=== PATIENT | female | born 1950 | race Caucasian/White ===

== ENCOUNTER 2017-11-21 14:38 | Emergency (ER) | payer MEDICARE, SELFPAY ==
[2017-11-21 14:54] VITALS: BP 169/88; PULSE 73; RESP 18; TEMP 36.7; O2SAT 99; BMI 44.1
[2017-11-21 15:22] VITALS: BP 147/63; PULSE 71; O2SAT 97
--- NOTE | 2017-11-21 15:46 | DI.CT.S_ITS ---
PROCEDURE: CT HEAD/BRAIN WO CON INDICATIONS: 67 year-old woman with dizziness and twitching behind right eye. TECHNIQUE: Noncontrast 4.5 mm thick angled axial sections acquired from the foramen magnum to the vertex, with coronal and sagittal reformats. For radiation dose reduction, the following was used: automated exposure control, adjustment of mA and/or kV according to patient size. COMPARISON: None. FINDINGS: Image quality: Excellent. CSF spaces: Basal cisterns are patent. No extra-axial fluid collections. Ventricles are normal in size and shape. Brain: Small hypodensities in the anterior limb of the left internal capsule and left basal ganglia may represent old lacunar infarcts or dilated perivascular space. No midline shift. No intracranial masses or hemorrhage. Mar-white matter interface is normal. Skull and face: Calvarium and visualized facial bones are intact, without suspicious lesions. Sinuses: Visualized sinuses and mastoids are clear. IMPRESSION: 1. No acute intracranial abnormalities. Dictated by: Kellee Dobbs M.D. on 11/21/2017 at 16:04 Approved by: Kellee Dobbs M.D. on 11/21/2017 at 16:09
--- NOTE | 2017-11-21 15:50 | PC.NURSE ---
Pt was sitting at home at about 1230 and all of the sudden felt a golf ball sized area of vibration behind the right eye. [place] dizzy and put her head between her knees. Was sent by doctor to come in.
[2017-11-21 16:03] VITALS: BP 147/71; PULSE 72; RESP 25; O2SAT 94
[2017-11-21 16:30] VITALS: BP 147/74; PULSE 67; RESP 22; O2SAT 93
--- NOTE | 2017-11-21 18:51 | ED.NEUROSD ---
HPI - Neuro Symptoms/Deficit General Chief Complaint: Neuro Symptoms/Deficit Stated Complaint: DIZZINESS,NAUSEA,BRAIN FELT LIKE IT VIBRATED Time Seen by Provider: 11/21/17 15:22 Source: patient Mode of arrival: ambulatory Limitations: no limitations History of Present Illness HPI Narrative: 67F presents to ED after a strange sensation behind her R eye described as 10 seconds of shaking, which resolved spontaneously, and was not assocaited with any neurological findings as per patient. No vision, hearing, balance, or numbness changes. No weakness. No pain. Patient wanted reassurance that what happened was not serious. No recent illness, fever, chills, SOB. Did report mild intermittent nausea that she often gets with taking her prescribed medicines. On Anticoagulants: No Related Data Home Medications Medication Instructions Recorded Confirmed albuterol sulfate [Ventolin HFA] 1 puff INH Q4HP PRN 11/21/17 11/21/17 Previous Rx's Medication Instructions Recorded [place] u IJ #100 01/11/17 alendronate 70 mg PO QWEEK #12 tab 05/22/17 bupropion HCl [Wellbutrin XL] 150 mg PO QDAY #30 tab 09/11/17 insulin glargine [Lantus Solostar 12 unit SQ HS #5 ea 09/14/17 U-100 Insulin] montelukast 10 mg PO QDAY #30 tab 09/21/17 fluticasone-vilanterol [Breo 1 puff INH QDAY #1 inh 10/05/17 Ellipta] atorvastatin [Lipitor] 20 mg PO HS #30 tab 10/16/17 hydrochlorothiazide 12.5 mg PO QDAY #30 tab 10/16/17 levothyroxine 50 mcg PO QAM #30 mg 10/16/17 losartan 50 mg PO BID #60 tab 10/16/17 metformin 1,000 mg tablet 1,000 mg PO BIDCC #60 tab 11/14/17 Allergies Allergy/AdvReac Type Severity Reaction Status Date / Time codeine [CODEINE] Allergy Unknown Verified 11/21/17 15:02 latex [LATEX] Allergy Unknown Verified 11/21/17 15:02 Review of Systems Constitutional Denies chills, Denies fever(s), Denies lethargy and Denies weakness Eyes Denies change in vision, Denies eye discharge, Denies irritation and Denies loss of vision Cardiovascular Denies chest pain, Denies irregular heart rhythm, Denies lightheadedness, Denies palpitations, Denies dyspnea, Denies dyspnea on exertion and Denies orthopnea Respiratory Denies cough, Denies dyspnea, Denies dyspnea on exertion and Denies wheezing Neurologic Denies loss of vision and Denies weakness Endocrine Denies palpitations Allergic/Immunologic Denies wheezing PFSH Surgical History Status post appendectomy Status post cholecystectomy Status post hysterectomy Family History Father Heart disease Mother Heart disease Social History Smoking Status: Never smoker Exam Initial Vital Signs Initial Vital Signs: Vital Signs Temperature 98.1 F 11/21/17 14:54 Pulse Rate 73 11/21/17 14:54 Respiratory Rate 18 11/21/17 14:54 Blood Pressure 169/88 H 11/21/17 14:54 Pulse Oximetry 99 11/21/17 14:54 Const General: cooperative and well developed Nutritional Appearance: well nourished Orientation: alert, awake, oriented x3 and not confused HENNM Head: normocephalic and atraumatic Ears: external ears normal and TM's normal bilaterally Nose: external nose normal and No nasal discharge Face and sinus: sinuses nontender, face symmetric, no sinus tenderness and No dry mucous membranes Mouth: oral mucosae normal and moist mucous membranes Teeth and gingiva: dentition normal Throat: tonsils normal and uvula midline Neck Neck: normal visual inspection, trachea midline, No lymphadenopathy, No midline deformity and No JVD Lymphatic: No lymphedema Resp Effort & Inspection: normal respiratory effort, able to speak in complete sentences, no respiratory distress and no use of accessory muscles Auscultation: clear to auscultation bilaterally, no rales, no rhonchi and no wheezes GI Inspection: non-distended Palpation: soft, no hepatosplenomegaly, No guarding, No pulsatile mass and No tender Auscultation: normal bowel sounds Neuro General: alert, oriented x3, gait normal and no focal motor deficits Speech: speech normal Extrem General: full ROM, no clubbing, cyanosis or edema, no pedal edema and no calf tenderness Course Orders Ordered: ED Orders 11/21/17 15:46 CT head/brain wo con Stat Vital Signs - 8 hr 11/21/17 14:54 11/21/17 15:22 11/21/17 16:03 Temperature 98.1 F Pulse Rate 73 71 72 Respiratory Rate 18 25 H Blood Pressure 169/88 H Blood Pressure [Right Arm] 147/63 H 147/71 H Pulse Oximetry 99 97 94 11/21/17 16:30 Temperature Pulse Rate 67 Respiratory Rate 22 Blood Pressure Blood Pressure [Right Arm] 147/74 H Pulse Oximetry 93 MDM - Neuro Symptoms/Deficit Lab Data N egative Urine POC Imaging Data CT scan - head: Radiologist's impression: Patient: Hiral Wood MR#: [id number] : 1950 Acct:[id number] Age/Sex: 67 / F Date of Service: 11/21/17 Loc: ED Accession Number: [id number] Procedure: CT head/brain wo con Ordering Provider: Bharti Garcia M.D. PROCEDURE: CT HEAD/BRAIN WO CON INDICATIONS: 67 year-old woman with dizziness and twitching behind right eye. TECHNIQUE: Noncontrast 4.5 mm thick angled axial sections acquired from the foramen magnum to the vertex, with coronal and sagittal reformats. For radiation dose reduction, the following was used: automated exposure control, adjustment of mA and/or kV according to patient size. COMPARISON: None. FINDINGS: Image quality: Excellent. CSF spaces: Basal cisterns are patent. No extra-axial fluid collections. Ventricles are normal in size and shape. Brain: Small hypodensities in the anterior limb of the left internal capsule and left basal ganglia may represent old lacunar infarcts or dilated perivascular space. No midline shift. No intracranial masses or hemorrhage. Mar-white matter interface is normal. Skull and face: Calvarium and visualized facial bones are intact, without suspicious lesions. Sinuses: Visualized sinuses and mastoids are clear. IMPRESSION: 1. No acute intracranial abnormalities. Dictated by: Kellee Dobbs M.D. on 11/21/2017 at 16:04 Approved by: Kellee Dobbs M.D. on 11/21/2017 at 16:09 ECG Data Interpretation: NSR HR [address]/TW abnormalities Normal intervals Normal axis MDM Narrative Medical decision making narrative: No neurological symptoms in her history to pursue. No current symptoms at time of visit to pursue. CT head negative for any structural etiology of symptoms. Patient reassured. Will follow up with her PCP Discharge Plan Departure Patient Disposition: Home, Self-Care Clinical Impression: Feared condition not demonstrated, Headache above the eye region Discharge Date/Time: 11/21/17 16:54 Interventions: ED Discharge Assessment Last Done: 11/21/17 16:54 Instructions: DI for Headache Activity Restrictions/Additional Instructions: Maintain adequate hydration. Please follow up with your primary care provider. Prescriptions: No Action [place] IJ Qty: 100 RF: 1 alendronate 70 MG tablet 70 mg PO QWEEK Qty: 12 RF: 4 bupropion HCl [Wellbutrin XL] 150 MG tablet extended release 24 hr 150 mg PO QDAY Qty: 30 RF: 6 insulin glargine [Lantus Solostar U-100 Insulin] 100 UNIT/1 ML insulin pen 12 unit SQ HS Qty: 5 RF: 1 montelukast 10 MG tablet 10 mg PO QDAY Qty: 30 RF: 2 fluticasone-vilanterol [Breo Ellipta] 200 MCG/25 MCG blister with device 1 puff INH QDAY Qty: 1 RF: 2 losartan 50 MG tablet 50 mg PO BID Qty: 60 RF: 3 atorvastatin [Lipitor] 20 MG tablet 20 mg PO HS Qty: 30 RF: 2 levothyroxine 50 MCG tablet 50 mcg PO QAM Qty: 30 RF: 2 hydrochlorothiazide 12.5 MG tablet 12.5 mg PO QDAY Qty: 30 RF: 2 metformin 1,000 mg tablet 1,000 mg PO BIDCC Qty: 60 RF: 1 albuterol sulfate [Ventolin HFA] 90 MCG/PUFF HFA aerosol inhaler 1 puff INH Q4HP PRN (Reason: Allergy Symptoms) RF: 0
== END 2017-11-21 16:54 | disposition home or self-care (01) ==
PROVIDERS: Emergency Provider Student in an Organized Health Care Education/Training Program; Family Provider Family Medicine; PCP Family Medicine
DX: R51 Headache (principal)
CPT/HCPCS: 70450; 81003; 93005; 93041; 99283; 99284; 99291

== ENCOUNTER → 2018-02-15 09:53 | Outpatient (CLI) | payer MEDICARE, SELFPAY ==
[2018-02-15 10:57] LABS: BUN Creatinine Ratio 27.5 (6-22); Blood Urea Nitrogen 22 mg/dL (7-17); Calcium 9.7 mg/dL (8.4-10.2); Carbon Dioxide 27 mmol/L (22-32); Chloride 103 mmol/L (98-107); Cholesterol 183 mg/dL (140-199); Estimated Glomerular Filt Rate > 60.0 mL/min (>60); Glucose 127 mg/dL (80-110); HDL Cholesterol 50 mg/dL (40-60); HEMOLYSIS < 15 (0-50); LDL Cholesterol Calculated 79 mg/dL (<100); Potassium 4.5 mmol/L (3.4-5.1); Sodium 142 mmol/L (137-145); Triglycerides 269 mg/dL (35-150)
[2018-02-15 12:30] LABS: TSH w/ Reflex to FT4 4.12 uIU/mL (0.47-4.68)
== END ==
PROVIDERS: Family Provider Family Medicine; PCP Family Medicine; Visit Provider Family Medicine
DX: E03.9 Hypothyroidism, unspecified (principal); E11.69 Type 2 diabetes mellitus with other specified complication; E78.5 Hyperlipidemia, unspecified; I10 Essential (primary) hypertension; E11.9 Type 2 diabetes mellitus without complications
CPT/HCPCS: 36415; 80048; 80061; 84443

== ENCOUNTER → 2018-11-13 09:38 | Outpatient (CLI) | payer MEDICARE, SELFPAY ==
[2018-11-13 10:29] LABS: Hemoglobin A1C% w Est Avg Glu 5.6 % (4.0-6.0)
[2018-11-13 10:38] LABS: BUN Creatinine Ratio 21.3 (6-22); Blood Urea Nitrogen 17 mg/dL (7-17); Carbon Dioxide 25 mmol/L (22-32); Chloride 104 mmol/L (98-107); Estimated Glomerular Filt Rate > 60.0 mL/min (>60); Glucose 115 mg/dL (80-110); HEMOLYSIS < 15 (0-50); Potassium 4.4 mmol/L (3.4-5.1); Sodium 140 mmol/L (137-145)
[2018-11-13 11:20] LABS: TSH w/ Reflex to FT4 3.63 uIU/mL (0.47-4.68)
[2018-11-19 14:37] LABS: Microalbumin Urine Random 8.2 mg/dL (0-1.6)
[2018-11-19 14:51] LABS: Creatinine Urine Random 374.6 mg/dL; Microalbumi Creatinin Ratio Ur 21.8 ug/mg CR (<30)
== END ==
PROVIDERS: PCP Family Medicine; Visit Provider Family Medicine
DX: E03.9 Hypothyroidism, unspecified (principal); E11.9 Type 2 diabetes mellitus without complications; I10 Essential (primary) hypertension; Z13.6 Encounter for screening for cardiovascular disorders
CPT/HCPCS: 36415; 80048; 82043; 82570; 83036; 84443

== ENCOUNTER 2019-07-02 18:27 | Emergency (ER) | payer MEDICARE, SELFPAY ==
[2019-07-02 18:45] VITALS: BP 140/80; PULSE 62; RESP 16; TEMP 36.9; O2SAT 100; BMI 41.1
--- NOTE | 2019-07-02 18:56 | DI.RAD.S_ITS ---
PROCEDURE: XR FOREARM RT 2V INDICATIONS: Ground level fall and pain to forearm TECHNIQUE: 2 views of the forearm were acquired. COMPARISON: None. FINDINGS: Bones: No fractures or dislocations. Small ossicle adjacent to the ulnar styloid likely represents sequelae of prior trauma. First CMC joint DJD. No suspicious bony lesions. Soft tissues: Soft tissue swelling over the distal one third of the forearm. No radiopaque foreign body. No suspicious soft tissue calcifications or masses. IMPRESSION: No acute osseous abnormality. Dictated by: William Das M.D. on 07/02/2019 at 19:15 Approved by: William Das M.D. on 07/02/2019 at 19:16
[2019-07-02 19:17] VITALS: PULSE 62
--- NOTE | 2019-07-02 19:20 | ED_ITS ---
HPI - General Adult General Chief complaint: Extremity Injury, Upper Stated complaint: GLF,total hip 6 wks ago,swelling left forearm. Time Seen by Provider: 07/02/19 19:04 Source: patient Mode of arrival: Ambulatory Limitations: no limitations History of Present Illness HPI narrative: 68-year-old female 6 weeks from a left total hip arthroplasty here for evaluation of injuries that she sustained after tripping over an area rug in her house. She stated that as she was falling she hit her left forearm on a piece of furniture. She then landed on her right side. Did not hit her head. Since the fall has been ambulatory. Does have some right hip pain. No left hip pain. She has a bruise to her left forearm. She is more concerned about the injury to her left forearm. No pain to the left wrist or left elbow. Related Data Home Medications Medication Instructions Recorded Confirmed albuterol sulfate [Ventolin HFA] 1 puff INH Q4HP PRN 11/21/17 03/07/19 Respironics DreamStation Auto CPAP #1 ea 08/02/18 03/07/19 meloxicam 15 mg tablet 15 mg PO DAILY 03/07/19 03/07/19 montelukast 10 mg tablet 10 mg PO QDAY PRN tab 03/07/19 03/07/19 Previous Rx's Medication Instructions Recorded losartan 50 mg tablet 50 mg PO BID #180 tab 03/11/18 atorvastatin 20 mg tablet 20 mg PO HS #90 tab 11/19/18 bupropion HCl 150 mg 24 hr tablet, 150 mg PO QDAY #90 tab 11/19/18 extended release duloxetine 20 mg capsule,delayed 20 mg PO DAILY #90 cap 11/19/18 release gabapentin 100 mg capsule 100 mg PO BID #180 cap 11/19/18 levothyroxine 50 mcg tablet 50 mcg PO QAM #90 tab 11/19/18 metformin 1,000 mg tablet 1,000 mg PO DAILY #90 tab 11/19/[address] #1 ea 01/24/19 albuterol sulfate 0.63 mg/3 mL 0.63 mg INHALATION Q4-6H PRN #75 ml 03/07/19 solution for nebulization doxycycline hyclate 100 mg capsule 100 mg PO BID #14 cap 03/07/19 prednisone 20 mg tablet 20 mg PO DAILY #7 tab 03/07/19 prednisone 20 mg tablet 20 mg PO DAILY #10 tab 03/12/19 Allergies Allergy/AdvReac Type Severity Reaction Status Date / Time codeine [CODEINE] Allergy Unknown Verified 03/07/19 09:34 latex [LATEX] Allergy Unknown Verified 03/07/19 09:34 Review of Systems Constitutional Constitutional: Denies frequent falls and Denies headache(s) ENT Ears, Nose, Mouth, and Throat: Denies vertigo, Denies dizziness, Denies headache(s) and Denies disequilibrium Cardiovascular Cardiovascular: Denies chest pain and Denies dyspnea Respiratory Respiratory: Denies dyspnea Gastrointestinal Gastrointestinal: Denies abdominal pain, Denies nausea and Denies vomiting Musculoskeletal Musculoskeletal: Denies myalgias, Denies arthralgias and Denies tingling Comments: Left forearm pain Integumentary/Breasts Comments: Bruise to left forearm Neurologic Neurologic: Denies burning sensations, Denies confusion, Denies vertigo, Denies dizziness, Denies frequent falls, Denies headache(s), Denies tingling, Denies paresthesias and Denies disequilibrium Psychiatric Psychiatric: Denies confusion Hematologic/Lymphatic Hematologic/Lymphatic: Denies easy bleeding and Denies easy bruising Patient History Medical History Asthma (Chronic ~2014) Chicken pox (Resolved) Depression (Chronic ~1997) Diabetes mellitus (Chronic ~2015) Hemorrhoid (Chronic ~1979) Hypothyroidism (Chronic ~2015) Measles (Resolved) Mumps (Resolved) Sleep apnea (Chronic ~1999) Social History marital status: Smoking Status: Never smoker alcohol intake: never substance use type: does not use Smoking Status: Never smoker alcohol intake frequency: holidays/special occasions only Substance Use Type: does not use Exam Initial Vital Signs Initial Vital Signs: Vital Signs Temperature 98.5 F 07/02/19 18:45 Pulse Rate 62 07/02/19 18:45 Respiratory Rate 16 07/02/19 18:45 Blood Pressure 140/80 07/02/19 18:45 Pulse Oximetry 100 07/02/19 18:45 Const General: cooperative, comfortable and well developed Orientation: alert, awake and oriented x3 HENMT Head: normal to inspection and normocephalic Resp Effort & Inspection: normal respiratory effort Cardio Rate: regular rate Skin Other: Bruise to left forearm without any breaks in the skin, ulnar aspect, mid forearm Neuro General: alert and awake Cognition: normal cognition Speech: speech normal Extrem General: normal to inspection and capillary refill normal Other: Bilateral hips unremarkable. Patient is ambulatory. Patient able to flex and extend the left wrist and left elbow and pronate and supinate left forearm Psych Appearance: grossly normal and well kempt Course Orders Ordered: ED Orders 07/02/19 18:56 XR forearm LT 2V Stat Vital Signs Vital signs: Vital Signs - 8 hr 07/02/19 18:45 07/02/19 19:17 Temperature 98.5 F Pulse Rate 62 Pulse Rate [Left Radial] 62 Respiratory Rate 16 Blood Pressure 140/80 Pulse Oximetry 100 Medical Decision Making Imaging Data Extremity x-ray #1: Radiologist's Impression: [address] [id number] XRay Report Signed Patient: Hiral Wood JMR#: [id number] : 2Acct:[id number] Age/Sex: 68 / FDate of Service: 07/02/19 Loc: ED Accession Number: [id number] Procedure: XR forearm LT 2V Ordering Provider: Tomas Escobar D.O. PROCEDURE: XR FOREARM RT 2V INDICATIONS: Ground level fall and pain to forearm TECHNIQUE: 2 views of the forearm were acquired. COMPARISON: None. FINDINGS: Bones: No fractures or dislocations. Small ossicle adjacent to the ulnar styloid likely represents sequelae of prior trauma. First CMC joint DJD. No suspicious bony lesions. Soft tissues: Soft tissue swelling over the distal one third of the forearm. No radiopaque foreign body. No suspicious soft tissue calcifications or masses. IMPRESSION: No acute osseous abnormality. Dictated by: William Das M.D. on 07/02/2019 at 19:15 Approved by: Willaim Dsa M.D. on 07/02/2019 at 19:16 MDM Narrative Medical decision making narrative: Patient has been able to ambulate. Low suspicion for hip fractures or dislocations. Patient was stating that she did not want an x-ray of her hips. Her left forearm has a bruise on the ulnar aspect. No breaks in the skin. X-rays show no fractures. This does appear to be a mechanical fall. No other injuries reported from the patient from the event are found on the exam. Patient was given return precautions and follow-up instructions. She expressed understanding and agreement plan. Discharge Plan Departure Patient Disposition: Home Clinical Impression: Contusion of arm, left Qualifiers: Encounter type: initial encounter Qualified Code(s): S40.022A - Contusion of left upper arm, initial encounter Fall Qualifiers: Encounter type: initial encounter Qualified Code(s): W19.XXXA - Unspecified fall, initial encounter Discharge Date/Time: 07/02/19 19:51 Instructions: DI for Hematoma (Bruise) Activity Restrictions/Additional Instructions: You can put ice over the bruise. Expect to be more sore tomorrow. If there is a specific pain and joint tomorrow please return to the emergency department for further evaluation like we discussed. Contact your primary provider for follow- up. Prescriptions: No Action metformin 1,000 mg tablet 1,000 mg PO DAILY Qty: 90 RF: 3 atorvastatin [Lipitor] 20 mg tablet 20 mg PO HS Qty: 90 RF: 3 bupropion HCl [Wellbutrin XL] 150 mg tablet extended release 24 hr 150 mg PO QDAY Qty: 90 RF: 3 levothyroxine 50 mcg tablet 50 mcg PO QAM Qty: 90 RF: 3 duloxetine 20 mg capsule,delayed release(DR/EC) 20 mg PO DAILY Qty: 90 RF: 3 gabapentin 100 mg capsule 100 mg PO BID Qty: 180 RF: 3 losartan 50 mg tablet 50 mg PO BID Qty: 180 RF: 3 (DME) Disabled parking permit Qty: 1 RF: 0 prednisone 20 mg tablet 20 mg PO DAILY Qty: 10 RF: 0 montelukast 10 mg tablet 10 mg PO QDAY PRNRF: 0 meloxicam 15 mg tablet 15 mg PO DAILY RF: 0 doxycycline hyclate 100 mg capsule 100 mg PO BID Qty: 14 RF: 0 albuterol sulfate 0.63 mg/3 mL solution for nebulization 0.63 mg INHALATION Q4-6H PRN (Reason: shortness of breath or wheezing) Qty: 75 RF: 0 prednisone 20 mg tablet 20 mg PO DAILY Qty: 7 RF: 0 albuterol sulfate [Ventolin HFA] 90 MCG/PUFF HFA aerosol inhaler 1 puff INH Q4HP PRN (Reason: Allergy Symptoms) RF: 0 (DME) Respironics DreamStation Auto CPAP Qty: 1 RF: 0 Referrals: Viviane Carpio DO [Primary Care Provider] -
== END 2019-07-02 19:51 | disposition home or self-care (01) ==
PROVIDERS: Emergency Provider Emergency Medicine; PCP Family Medicine
DX: S40.022A Contusion of left upper arm, initial encounter (principal); W01.190A Fall on same level from slipping, tripping and stumbling with subsequent striking against furniture, initial encounter
CPT/HCPCS: 73090; 99281; 99283

== ENCOUNTER → 2020-07-29 09:08 | Outpatient (CLI) | payer MEDICARE, SELFPAY ==
[2020-07-29 09:45] LABS: Add Manual Diff / Slide Review NO; Basophils Absolute Auto 0 /uL (0-100); Basophils Percent Auto 0.6 % (0-2); Eosinophils Absolute Auto 400 /uL (0-450); Eosinophils Percent Auto 6.6 % (2-4); Hematocrit 37.1 % (36-46); Lymphocytes Absolute Auto 1500 /uL (1100-4500); Lymphocytes Percent Auto 26.6 % (25-40); Mean Corpuscular HGB Conc 32.4 % (30-36); Mean Corpuscular Hemoglobin 28.8 PG (26-34); Monocytes Absolute Auto 400 /uL (0-900); Monocytes Percent Auto 6.5 % (3-14); Neutrophils Absolute Auto 3400 /uL (1500-7000); Neutrophils Percent Auto 59.7 % (50-75); Platelet Count 275 X10^3/uL (150-400); Red Blood Cell Count 4.17 X10^6/uL (4.0-5.2); White Blood Cell Count 5.7 X10^3/uL (4.5-11.0)
[2020-07-29 09:54] LABS: Alanine Aminotransferase 14 IU/L (<35); Albumin 4.5 g/dL (3.5-5.0); Albumin Globulin Ratio 1.3 (1.0-2.8); Alkaline Phosphatase 80 U/L (38-126); Aspartate Aminotransferase 25 IU/L (14-36); BUN Creatinine Ratio 18.3 (6-22); Bilirubin Total 0.4 mg/dL (0.2-1.3); Blood Urea Nitrogen 13 mg/dL (7-17); Calcium 9.6 mg/dL (8.4-10.2); Carbon Dioxide 27 mmol/L (22-32); Chloride 108 mmol/L (98-107); Cholesterol 278 mg/dL (140-199); Estimated Glomerular Filt Rate > 60.0 mL/min (>60); Globulin 3.4 g/dL (1.7-4.1); Glucose 123 mg/dL (80-110); HDL Cholesterol 58 mg/dL (40-60); HEMOLYSIS 17 (0-50); LDL Cholesterol Calculated 168 mg/dL (<100); Potassium 4.3 mmol/L (3.4-5.1); Sodium 141 mmol/L (137-145); Total Protein 7.9 g/dL (6.3-8.2); Triglycerides 258 mg/dL (35-150)
[2020-07-29 10:09] LABS: Hemoglobin A1C% w Est Avg Glu 5.1 % (4.0-6.0)
[2020-07-29 10:33] LABS: Thyroid Stimulating Hormone 4.07 uIU/mL (0.47-4.68)
== END ==
PROVIDERS: PCP Family Medicine; Referring Provider Family Medicine; Visit Provider Family Medicine
DX: E03.9 Hypothyroidism, unspecified (principal); E11.9 Type 2 diabetes mellitus without complications; E11.69 Type 2 diabetes mellitus with other specified complication; E66.01 Morbid (severe) obesity due to excess calories; E78.5 Hyperlipidemia, unspecified; I10 Essential (primary) hypertension; Z68.41 Body mass index [BMI] 40.0-44.9, adult
CPT/HCPCS: 36415; 80053; 80061; 83036; 84443; 85025

== ENCOUNTER → 2020-08-04 11:01 | Outpatient (CLI) | payer MEDICARE, SELFPAY ==
--- NOTE | 2020-08-04 11:06 | DI.MG.S_ITS ---
BILATERAL DIGITAL SCREENING MAMMOGRAM 3D/2D WITH CAD: 08/04/2020 CLINICAL: Baseline exam. Routine screening. No prior exams were available for comparison. There are scattered fibroglandular elements in both breasts. Current study was also evaluated with a Computer Aided Detection (CAD) system. No significant masses, calcifications, or other findings are seen in either breast. IMPRESSION: NEGATIVE There is no mammographic evidence of malignancy. A 1 year screening mammogram is recommended. This exam was interpreted at Station ID: [id number]. NOTE: For mammograms, a report in lay terms will be sent to the patient. Approximately 15% of breast malignancies will not be visualized mammographically. In the management of a palpable breast mass, a negative mammogram must not discourage biopsy of a clinically suspicious lesion. Electronically Signed By: Vinicius pena/jimena:08/04/2020 11:36:42 letter sent: Normal Exam ACR BI-RADS Category 1: Negative [id number]
== END ==
PROVIDERS: PCP Family Medicine; Referring Provider Family Medicine; Visit Provider Family Medicine
DX: Z12.31 Encounter for screening mammogram for malignant neoplasm of breast (principal)
CPT/HCPCS: 77063; 77067

== ENCOUNTER → 2020-08-10 10:11 | Outpatient (CLI) | payer MEDICARE, SELFPAY | PROVIDERS: PCP Family Medicine; Referring Provider Family Medicine; Visit Provider Family Medicine | DX: Z78.0 Asymptomatic menopausal state (principal); R29.890 Loss of height; Z90.722 Acquired absence of ovaries, bilateral | CPT/HCPCS: 77080 ==

== ENCOUNTER 2020-11-26 09:04 | Emergency (ER) | payer MEDICARE, SELFPAY ==
[2020-11-26] VITALS (24 sets, daily range): BP systolic 82–110; BP diastolic 46–94; PULSE 69–110; RESP 16–28; TEMP 37.7; O2SAT 85–97; BMI 37.8
--- NOTE | 2020-11-26 09:13 | ED_ITS ---
HPI - General Adult General Chief complaint: Fever Stated complaint: Chills for 2 hours Time Seen by Provider: 11/26/20 09:13 Source: patient, family (son) and EMS Mode of arrival: EMS Limitations: no limitations History of Present Illness HPI narrative: This is a 70-year-old female who is [facility] for chills for the last 2-3 hours. Patient states she has noticed some dysuria with the end of urination over the past 2 or 3 days. Patient denies any headache. She denies any chest pain or pressure. She has had nausea but no active emesis at this time. She denies any shortness of breath she denies abdominal pain. No new back or flank pain. Patient denies any black or bloody stools. She was constipated but had a very large bowel movement yesterday. She has not had any continued diarrhea since then. Patient had a difficult hospitalization head [facility] recently from her description sounds like she likely had an obstructive kidney stone with urosepsis. Patient has a left-sided nephrostomy present. She does still continue to urinate on her own. She states she also had 2 ureteral stents placed which are still present. 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 Patient also states that she had a heart attack while she was there and had 2 cardiac stents placed. Patient is unsure of all her medications but states she is receiving heparin shots daily. She does have history of diabetes, hypertension 1 with coronary artery disease, LESLIE and hypothyroidism. Patient states she has a history of appendectomy, cholecystectomy and hysterectomy as well as tonsillectomy. She states she is allergic to hydrocodone and latex. No tobacco, alcohol or illicit noted. Patient's son is at bedside. Related Data Home Medications Medication Instructions Recorded Confirmed Respironics [employer] Auto CPAP #1 ea 08/02/18 10/11/20 Previous Rx's Medication Instructions Recorded Disabled parking permit #1 ea 01/24/19 atorvastatin 10 mg tablet 10 mg PO BEDTIME #90 tab 08/10/20 losartan 50 mg tablet 50 mg PO DAILY #90 tab 08/10/20 meloxicam 7.5 mg tablet 7.5 mg PO DAILY #90 tab 08/10/20 bupropion HCl 150 mg 24 hr tablet, 150 mg PO QAM #90 tab 10/13/20 extended release Allergies Allergy/AdvReac Type Severity Reaction Status Date / Time codeine [CODEINE] Allergy Unknown Verified 10/11/20 16:40 latex [LATEX] Allergy Unknown Verified 10/11/20 16:40 Review of Systems Review of Systems ROS Unobtainable: All systems reviewed & are unremarkable except as noted in HPI and below Patient History Medical History Asthma (~2014) Chicken pox Depression (~1997) Diabetes mellitus (~2015) Hemorrhoid (~1979) Hypothyroidism (~2015) Measles Mumps Obesity (BMI 30-39.9) Sleep apnea (~1999) Surgical History Anesthesia History of sinus surgery (~2004) Status post appendectomy (~1959) Status post cholecystectomy (~1988) Status post hysterectomy (~1998) Family History Father Heart disease Mother Heart disease Social History marital status: Smoking Status: Never smoker alcohol intake: never substance use type: does not use Smoking Status: Never smoker alcohol intake frequency: holidays/special occasions only Substance Use Type: does not use Exam Narrative Exam Narrative: GEN: well nourished, female appears stated age, alert and oriented x 3, patient appears to be in mild distress. Patient does appear to have occasional shaking chills. HEENT: Atraumatic, pupils are equal round reactive to light, extraocular movements are intact, nares are clear. Full range of motion of neck with no pain. HEART: Regular rate and rhythm without murmur, clicks, rubs. Pulses are equal in upper and lower extremities LUNGS:Lungs clear to auscultation, no wheezes, rales, crackles, chest moves symmetrically ABD:bowel sounds normal, soft, non-tender, no guarding, rebound, rigidity, no masses noted, no hepatosplenomegaly :No CVA tenderness, patient has left nephrostomy tube in place draining cloudy urine. MSCL: Non-tender, no muscle atrophy, patient has black discoloration of her toes particularly on the right foot in particular toes 1 through 3, but has some mild changes on her left as well. Patient also has some mild discoloration of the distal fingers but no black discoloration. Patient has 2+ pulses bilateral lower extremities dorsalis pedis. She also has lines drawn on her feet with no extension of erythema or skin changes beyond those lines. NEURO:CN 2-12 intact, sensation normal. GCS of 15 Initial Vital Signs Initial Vital Signs: Vital Signs Temperature 99.8 F H 11/26/20 09:14 Pulse Rate 97 H 11/26/20 09:14 Respiratory Rate 20 11/26/20 09:14 Blood Pressure 110/83 11/26/20 09:14 Pulse Oximetry 96 11/26/20 09:14 Scores GCS Mirna coma scale eye opening: Spontaneous Mirna coma scale verbal response: Orientated [place] coma scale motor response: Obey commands [place] coma scale total score: 15 Course Orders Ordered: ED Orders 11/26/20 10:00 Urinalysis and Microscopic Stat Urine Culture Stat 11/26/20 10:35 Complete Blood Count AUTO DIFF Stat Comprehensive Metabolic Panel Stat Lactate (Lactic Acid) Stat NT-proBNP (BNP-Adult 18+) Stat Partial Thromboplastin Time Stat Procalcitonin Stat Prothrombin Time INR Stat Troponin & CK Cardiac Panel Stat 11/26/20 10:43 Blood Culture Stat 11/26/20 11:20 CT abdomen pelvis w con Stat 11/26/20 13:25 COVID19 - ADMIT (FINAL [employer]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) Stat Lactated Ringer's (Lactated Ringers) 1,000 mls @ 150 mls/hr IV CONT JENN Last Admin: 11/26/20 17:40 Dose: 150 mls/hr Documented by: DIMAS Discontinued Medications Sodium Chloride (Normal Saline 0.9%) 1,000 mls @ 1,000 mls/hr IV BOLUS ONE Stop: 11/26/20 10:19 Last Infusion: 11/26/20 13:08 Dose: 0 mls/hr Documented by: Admin: 11/26/20 09:29 Dose: 1,000 mls/hr Documented by: DIMAS Piperacillin Sod/Tazobactam (Sod 4.5 gm/ Sodium Chloride) 100 mls @ 200 mls/hr IV NOW ONE Stop: 11/26/20 10:30 Last Infusion: 11/26/20 11:25 Dose: 0 mls/hr Documented by: Admin: 11/26/20 10:49 Dose: 200 mls/hr Documented by: DIMAS Levofloxacin (Levaquin) 750 mg in 150 mls @ 100 mls/hr IV NOW ONE Stop: 11/26/20 11:58 Last Infusion: 11/26/20 13:44 Dose: 0 mls/hr Documented by: Infusion: 11/26/20 13:08 Dose: 100 mls/hr Documented by: Infusion: 11/26/20 11:26 Dose: 0 mls/hr Documented by: Admin: 11/26/20 10:51 Dose: 100 mls/hr Documented by: DIMAS Lactated Ringer's (Lactated Ringers) 2,993.7 mls @ 997.9 mls/hr 30 ml/kg infuse over 3 hr (2993.7 ml) IV NOW ONE Stop: 11/26/20 13:29 Last Infusion: 11/26/20 17:04 Dose: 0 mls/hr Documented by: Infusion: 11/26/20 16:03 Dose: 999 mls/hr Documented by: Infusion: 11/26/20 15:12 Dose: 0 mls/hr Documented by: Admin: 11/26/20 14:05 Dose: 997.9 mls/hr Documented by: MELO Vancomycin HCl/Dextrose (Vancomycin) 1,500 mg in 300 mls @ 200 mls/hr IV NOW ONE Stop: 11/26/20 15:09 Last Infusion: 11/26/20 16:03 Dose: 0 mls/hr Documented by: Admin: 11/26/20 13:49 Dose: 200 mls/hr Documented by: MELO Ondansetron HCl (Ondansetron 4 Mg/2 Ml Inj) 4 mg IV NOW ONE Stop: 11/26/20 10:46 Last Admin: 11/26/20 10:51 Dose: 4 mg Documented by: DIMAS Reevaluation(s) Reevaluation #1: This is a 70-year-old female who comes in with chills. On repeat evaluation she feels like she is starting to warm up. She has not developed fever. She has not had any hypotension. She has had some mild tachycardia. Discussed with patient I do not have CT available but ultrasound of Um does not show any major changes. We did general abdominal ultrasound. Chest x-ray is clear. Labs are currently pending. Urine does have leuks as well as many wbc's. No nitrates but with patient's symptoms, her recent urosepsis IV antibiotics were initiated while awaiting labs. I am still awaiting hospital records from [facility]. Patient states she does not have any follow-up with Urology or Nephrology set up at this time. Her primary care is Dr. Carpio. Time: 10:43 Reevaluation #2: Repeat evaluation. Reviewed patient's labs and imaging once again. She is feeling improved at this time. She states her chills have resol gail. She does not any shortness of breath, chest pain, nausea vomiting or other other changes at this time. Patient aware of current plan. I did note that her blood pressures have been running low. We had not initiated pressors although it was discussed with the hospitalist at [facility] and they elected to have us wait. I also discussed with patient if her pressures continued to drop appreciate any other new changes that we would likely initiate these. Time: 18:10 Consultations Consultation #1: Dr. Galarza, hospitalist and myself were both in agreement that we do not have the appropriate services for this patient. She may need additional service that we just do not have. Time: 13:44 Consultation #2: Dr. Oneil, hospitals at [facility] for transfer. They recommend giving an additional bolus of fluid. They do ask us to re-contacted any drops in pressure and to recontact for potential changed to ICU. At this time plan for med tele bed. We did discuss patient's pressures have been consistently in the 90s to 80s. No tachycardia, she has had some tachypnea and occasional drops in her O2. Appears to have a pneumonia on her CT she has had Hcap coverage for antibiotics. As patient has not had any acute changes in her mentation. Her labs are consistent with a worsening infection whether this is purely pneumonia or related to her urine is unclear. Her urine does show some changes consistent with infection and urine culture and blood cultures are pending. Time: 17:28 Vital Signs Vital signs: Vital Signs - 8 hr 11/26/20 11:00 11/26/20 11:30 11/26/20 12:00 Pulse Rate 105 H 97 H 78 Respiratory Rate 22 26 H 22 Blood Pressure Pulse Oximetry 91 86 L 92 11/26/20 12:30 11/26/20 12:33 11/26/20 12:35 Pulse Rate 90 85 85 Respiratory Rate 16 23 21 Blood Pressure 89/50 L 85/47 L 87/48 L Pulse Oximetry 95 94 90 L 11/26/20 13:00 11/26/20 13:30 11/26/20 14:00 Pulse Rate 80 82 79 Respiratory Rate 28 H 21 16 Blood Pressure 97/52 L 99/55 L 86/67 L Pulse Oximetry 97 94 92 11/26/20 14:30 11/26/20 15:00 11/26/20 15:30 Pulse Rate 77 77 74 Respiratory Rate 28 H 27 H 26 H Blood Pressure 88/53 L 95/51 L 97/52 L Pulse Oximetry 93 89 L 85 L 11/26/20 16:00 11/26/20 16:30 11/26/20 17:00 Pulse Rate 77 78 72 Respiratory Rate 20 25 H 25 H Blood Pressure 89/50 L 83/61 L 83/46 L Pulse Oximetry 93 93 90 L 11/26/20 17:30 Pulse Rate 75 Respiratory Rate 21 Blood Pressure 82/52 L Pulse Oximetry 95 Medical Decision Making Lab Data Lab results reviewed: Yes I reviewed the patient's lab results. Result diagrams: 11/26/20 10:35 11/26/20 10:35 Labs: Lab Results 11/26/20 11/26/20 11/26/20 Range/Units 10:00 10:35 10:35 WBC 22.5 H (4.5-11.0) X10^3/uL RBC 3.85 L (4.0-5.2) X10^6/uL Hgb 11.2 L (12.0-16.0) g/dL Hct 33.9 L (36-46) % MCV 87.9 (80-100) fL MCH 29.0 (26-34) PG MCHC 33.0 (30-36) % RDW 17.3 H (11.6-14.8) % Plt Count 276 (150-400) X10^3/uL Neut % (Auto) 92.0 H (50-75) % Lymph % (Auto) 3.3 L (25-40) % Jones % (Auto) 3.4 (3-14) % Eos % (Auto) 0.9 L (2-4) % Baso % (Auto) 0.4 (0-2) % Neut # (Auto) 66596 H (9909-5140) /uL Lymph # (Auto) 700 L (2575-5826) /uL Jones # (Auto) 800 (0-900) /uL Eos # (Auto) 200 (0-450) /uL Baso # (Auto) 100 (0-100) /uL PT 13.5 H (10.1-12.7) SECONDS INR 1.2 (0.9-1.3) APTT (26.4-36.2) SECONDS Sodium (137-145) mmol/L Potassium (3.4-5.1) mmol/L Chloride (98-107) mmol/L Carbon Dioxide (22-32) mmol/L BUN (7-17) mg/dL Creatinine (0.52-1.04) mg/dL Estimated GFR (>60) mL/min BUN/Creatinine Ratio (6-22) Glucose (80-110) mg/dL Lactate (0.7-2.1) mmol/L Calcium (8.4-10.2) mg/dL Total Bilirubin (0.2-1.3) mg/dL AST (14-36) IU/L ALT (<35) IU/L Alkaline Phosphatase (38-126) U/L Total Creatine Kinase (30-135) U/L CK-MB (CK-2) CK-MB (CK-2) Rel Index Troponin I (0.01-0.034) ng/mL NT-Pro-B Natriuret Pep (<125) pg/mL Total Protein (6.3-8.2) g/dL Albumin (3.5-5.0) g/dL Globulin (1.7-4.1) g/dL Albumin/Globulin Ratio (1.0-2.8) Procalcitonin (<0.5) ng/mL Urine Color Yellow Urine Appearance Sl cloudy Urine pH 6.5 (4.5-8.0) Ur Specific [place] 1.020 (1.000-1.035) Urine Protein 2+ H (Negative) Urine Glucose (UA) Negative (Negative) g/dL Urine Ketones Negative (NEGATIVE) Urine Occult Blood 2+ H (Negative) Urine Nitrate Negative (Negative) Urine Bilirubin Negative (NEGATIVE) Urine Urobilinogen 0.2 (0.2) E.U./dL Ur Leukocyte Esterase 3+ H (NEGATIVE) Urine RBC 10-30/hpf H (0-5/HPF) Urine WBC 30-100/hpf H (0-5/HPF) Ur Squamous Epith Cells 1-5 /hpf (0-5/HPF) Urine Bacteria None seen (None) Ur Culture Indicated? Specimen cultured SARS-CoV-2 (PCR) (Negative) 11/26/20 11/26/20 11/26/20 Range/Units 10:35 10:35 10:35 WBC (4.5-11.0) X10^3/uL RBC (4.0-5.2) X10^6/uL Hgb (12.0-16.0) g/dL Hct (36-46) % MCV (80-100) fL MCH (26-34) PG MCHC (30-36) % RDW (11.6-14.8) % Plt Count (150-400) X10^3/uL Neut % (Auto) (50-75) % Lymph % (Auto) (25-40) % Jones % (Auto) (3-14) % Eos % (Auto) (2-4) % Baso % (Auto) (0-2) % Neut # (Auto) (5408-5544) /uL Lymph # (Auto) (2417-0582) /uL Jones # (Auto) (0-900) /uL Eos # (Auto) (0-450) /uL Baso # (Auto) (0-100) /uL PT (10.1-12.7) SECONDS INR (0.9-1.3) APTT 32 (26.4-36.2) SECONDS Sodium 136 L (137-145) mmol/L Potassium 4.7 (3.4-5.1) mmol/L Chloride 101 (98-107) mmol/L Carbon Dioxide 24 (22-32) mmol/L BUN 29 H (7-17) mg/dL Creatinine 1.34 H (0.52-1.04) mg/dL Estimated GFR 39.2 L (>60) mL/min BUN/Creatinine Ratio 21.6 (6-22) Glucose 167 H (80-110) mg/dL Lactate 1.4 (0.7-2.1) mmol/L Calcium 10.2 (8.4-10.2) mg/dL Total Bilirubin 1.3 (0.2-1.3) mg/dL AST 22 (14-36) IU/L ALT 16 (<35) IU/L Alkaline Phosphatase 125 (38-126) U/L Total Creatine Kinase 27 L (30-135) U/L CK-MB (CK-2) TNP CK-MB (CK-2) Rel Index TNP Troponin I 0.022 (0.01-0.034) ng/mL NT-Pro-B Natriuret Pep 1350 H (<125) pg/mL Total Protein 8.7 H (6.3-8.2) g/dL Albumin 4.4 (3.5-5.0) g/dL Globulin 4.3 H (1.7-4.1) g/dL Albumin/Globulin Ratio 1.0 (1.0-2.8) Procalcitonin 1.00 H (<0.5) ng/mL Urine Color Urine Appearance Urine pH (4.5-8.0) Ur Specific [place] (1.000-1.035) Urine Protein (Negative) Urine Glucose (UA) (Negative) g/dL Urine Ketones (NEGATIVE) Urine Occult Blood (Negative) Urine Nitrate (Negative) Urine Bilirubin (NEGATIVE) Urine Urobilinogen (0.2) E.U./dL Ur Leukocyte Esterase (NEGATIVE) Urine RBC (0-5/HPF) Urine WBC (0-5/HPF) Ur Squamous Epith Cells (0-5/HPF) Urine Bacteria (None) Ur Culture Indicated? SARS-CoV-2 (PCR) (Negative) 11/26/20 Range/Units 13:25 WBC (4.5-11.0) X10^3/uL RBC (4.0-5.2) X10^6/uL Hgb (12.0-16.0) g/dL Hct (36-46) % MCV (80-100) fL MCH (26-34) PG MCHC (30-36) % RDW (11.6-14.8) % Plt Count (150-400) X10^3/uL Neut % (Auto) (50-75) % Lymph % (Auto) (25-40) % Jones % (Auto) (3-14) % Eos % (Auto) (2-4) % Baso % (Auto) (0-2) % Neut # (Auto) (1966-1331) /uL Lymph # (Auto) (6696-3762) /uL Jones # (Auto) (0-900) /uL Eos # (Auto) (0-450) /uL Baso # (Auto) (0-100) /uL PT (10.1-12.7) SECONDS INR (0.9-1.3) APTT (26.4-36.2) SECONDS Sodium (137-145) mmol/L Potassium (3.4-5.1) mmol/L Chloride (98-107) mmol/L Carbon Dioxide (22-32) mmol/L BUN (7-17) mg/dL Creatinine (0.52-1.04) mg/dL Estimated GFR (>60) mL/min BUN/Creatinine Ratio (6-22) Glucose (80-110) mg/dL Lactate (0.7-2.1) mmol/L Calcium (8.4-10.2) mg/dL Total Bilirubin (0.2-1.3) mg/dL AST (14-36) IU/L ALT (<35) IU/L Alkaline Phosphatase (38-126) U/L Total Creatine Kinase (30-135) U/L CK-MB (CK-2) CK-MB (CK-2) Rel Index Troponin I (0.01-0.034) ng/mL NT-Pro-B Natriuret Pep (<125) pg/mL Total Protein (6.3-8.2) g/dL Albumin (3.5-5.0) g/dL Globulin (1.7-4.1) g/dL Albumin/Globulin Ratio (1.0-2.8) Procalcitonin (<0.5) ng/mL Urine Color Urine Appearance Urine pH (4.5-8.0) Ur Specific [place] (1.000-1.035) Urine Protein (Negative) Urine Glucose (UA) (Negative) g/dL Urine Ketones (NEGATIVE) Urine Occult Blood (Negative) Urine Nitrate (Negative) Urine Bilirubin (NEGATIVE) Urine Urobilinogen (0.2) E.U./dL Ur Leukocyte Esterase (NEGATIVE) Urine RBC (0-5/HPF) Urine WBC (0-5/HPF) Ur Squamous Epith Cells (0-5/HPF) Urine Bacteria (None) Ur Culture Indicated? SARS-CoV-2 (PCR) Negative (Negative) Imaging Data Chest x-ray: Radiologist's Impression: [address] [id number] ReportSigned Patient: Hiral Wood SONNYR#: [id number]: 1950cct:[id number]/Sex: 70 / FDate of Service: 11/26/20Loc: EDAccession Number: [id number] Procedure: XR chest 1V Ordering Provider: Lacey Travis D.O. PROCEDURE: XR CHEST 1V INDICATIONS: chills, recent urosepsis with obstructive stone. TECHNIQUE: One view of the chest was acquired. COMPARISON: [facility], , CHEST 2 VIEW, 07/28/2017, 15:39. FINDINGS: Surgical changes and devices: None. Lungs and pleura: Lungs are clear. No pleural effusions or pneumothorax. Mediastinum: Mediastinal contours appear normal. Heart size is normal. Bones and chest wall: No suspicious bony lesions. Age-appropriate bony degenerative changes are seen. Overlying soft tissues appear unremarkable. IMPRESSION: Limited portable chest examination, without a significant cardiopulmonary abnormality identified. Dictated by: Steve Oconnell M.D. on 11/26/2020 at 9:28 Approved by: Steve Oconnell M.D. on 11/26/2020 at 9:28 US - abdomen: Radiologist's Impression: prelim from US-trace left pelviectasis heterogeneous left kidney and prominent liver consistent with fatty liver. Urostomy tube appears to be in place on the left kidney. [address] [id number] ReportSigned Patient: Hiral Wood SONNYR#: [id number]: 2Acct:[id number]/Sex: 70 / FDate of Service: 11/26/20Loc: EDAccession Number: [id number] Procedure: US abdomen complete Ordering Provider: Lacey Travis D.O. PROCEDURE: US ABDOMEN COMPLETE INDICATIONS: RECENT UROSEPSIS. CHILLS WITH OBSTRUCTIVE STONE. TECHNIQUE: Real-time scanning was performed of the abdominal and retroperitoneal organs, with image documentation. COMPARISON: [facility], CR, XR PELVIS WITH LATERAL HIP RIGHT, 10/12/2020, 13:29. [facility], CR, XR CHEST 1V, 11/26/2020, 10:18. FINDINGS: Liver: Liver is normal in size and homogeneous in echotexture. Gallbladder: The gallbladder has been previously resected Biliary ducts: Intrahepatic bile ducts are non-dilated. Extrahepatic bile duct caliber measures 4.9 mm. Normal is 6-7 mm or less in diameter, or 10 mm or less post-cholecystectomy. Pancreas: Poorly seen due to overlying bowel gas.. Spleen: Spleen is normal in size and homogeneous in echotexture. Kidneys: Kidneys are normal in size and echotexture. Right kidney measures 10.2 cm long; left kidney measures 11.2 cm long. No right-sided hydronephrosis or nephrolithiasis. Mild left-sided pelvicaliectasis. A left-sided nephrostomy tube is present, faintly visualized. No solid masses. Aorta: Visualized aorta is normal in caliber at less than 3 cm. Iliacs: Proximal common iliac arteries are normal in caliber at less than 2.5 cm. IVC: Intrahepatic inferior vena cava is patent. Miscellaneous: No free abdominal fluid. Prevoid urinary bladder appears normal, nondistended. IMPRESSION: Mild left-sided pelvicaliectasis. Left-sided flank percutaneous nephrostomy tube present, faintly visualized on sonographic imaging. Note: Reportedly patient has undergone nephrostomy tube placement for obst ructive urinary tract stone and infection above obstruction. CT scanning would provide a more thorough assessment if clinically indicated. Dictated by: Rudy Rivera M.D. on 11/26/2020 at 10:39 Approved by: Rudy Rivera M.D. on 11/26/2020 at 10:58 CT scan - abdomen/pelvis: Radiologist's Impression: [address] [id number] Scan ReportSigned Patient: Hiral Wood R#: [id number]: 2Acct:[id number]/Sex: 70 / FDate of Service: 11/26/20Loc: EDAccession Number: [id number] Procedure: CT abdomen pelvis w con Ordering Provider: Lacey Travis D.O. PROCEDURE: CT ABDOMEN PELVIS W CON INDICATIONS: hx of ureteral stent, sepsis, chills, worsening labs. TECHNIQUE: After the administration of intravenous contrast, 5 mm thick sections acquired from the diaphragm to the symphysis. 5 mm coronal and sagittal reformats were acquired. For radiation dose reduction, the following was used: automated exposure control, adjustment of mA and/or kV according to patient size. COMPARISON: Outside Facility, RG, CT THORAX/ABD/PELVIS W/O CONTRAST, 10/27/2020, 5:11. FINDINGS: Image quality: Excellent. ABDOMEN: Lung bases: Lung bases are clear except for linear atelectasis or mild pneumonia at the posterior right lung base.. Heart size is normal. Solid organs: Liver is normal in size and enhancement. Gallbladder has been resected. Biliary system is non dilated. Pancreas enhances normally. Spleen is normal in size and enhancement. No adrenal nodules. Kidneys demonstrate normal size and enhancement, without hydronephrosis. There is a left posterior approach nephrostomy tube, on the left. More inferiorly at the abdomen/pelvis junction there is a 7 mm mid ureteral stone, having an internal radiodensity of up to 925 Hounsfield units. Peritoneum and bowel: Bowel loops demonstrate normal wall thickness and caliber. No free fluid or air. Nodes and vessels: No retroperitoneal or mesenteric adenopathy by size criteria . Aorta and inferior vena cava are normal in size. Miscellaneous: No ventral hernias. PELVIS: Genitourinary: Bladder wall thickness is normal. Miscellaneous: No inguinal hernias or adenopathy. Metal artifact from bilateral hip arthroplasty devices reduces quality of visualization over the lower pelvis. Bones: No suspicious bony lesions. No vertebral body compression fractures. IMPRESSION: Nephrostomy tube on the left, percutaneous from posterior approach, with no associated significant hydronephrosis in this patient with reported high-grade obstruction associated with the 7 mm mid left ureteral stone discussed above. Mild or early pneumonia right lung base posteriorly, versus atelectasis. Quality of visualization of the lower portion of the pelvis is relatively limited by metal artifact from bilateral hip arthroplasty devices. However, no inflammation in this area is suspected. Dictated by: Rudy Rivera M.D. on 11/26/2020 at 12:49 Approved by: Rudy Rivera M.D. on 11/26/2020 at 12:54 ECG Data Attestation: I personally reviewed and interpreted this ECG as follows: Interpretation: Sinus tachycardia rate of 109, IL 144 QRS 84 and QTC 377. T- wave abnormality is noted. Patient has some ST depression in 2 3 AVF. Do not appreciate no ST elevation. Patient has prior EKG from 11/21/2017 which does not show this change. 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 Patient had been discharged to a halfway. She is not currently on any antibiotics for her prior infection. She was brought in today for shaking chills and noted that she has had some dysuria but denies any other symptoms really other than this. Urine shows potential infection but during her evaluation it was noted that she had pneumonia bilaterally on her CT imaging of her abdomen and pelvis. Patient was covered for Hcap coverage for pneumonia with Zosyn, Levaquin and Vanco. She had 30 cc/kilos bolus and had continued fluids running afterwards. While patient was the department should we had difficulty maintaining IV access and she had 2 IVs replaced and we contacted DI to have a midline placed for more secure access and if we need pressors. Her labs show elevated white count as well as a elevated procalcitonin. Her renal function is elevated from priors in July but I do not have a more recent labs from her last hospitalization. Her electrolytes and liver enzymes and an elevated BUN but normal LFTs. BNP is elevated at 1300 but troponin is negative. Was performed and is negative. We do not have Urology available here for management of patient's nephrostomy tube and do not have IR available over the weekend she needed to have it placed. I did speak with our hospitalist who feels patient would be better treated at a larger facility with additional resources that are not available to our self. Spoke with the hospitalist at [facility] who accepts for transfer. We did discuss that her pressures been consistently in the 90 sometimes mid 80s. At this time they will have a hold on starting pressors although we did discuss potentially starting them. We are directed to recontact if she has increasing dropping pressures to change course and upgrade her to ICU. Discharge Plan Departure Patient Disposition: [facility] Clinical Impression: Pneumonia, Sepsis Prescriptions: No Action losartan 50 mg tablet 50 mg PO DAILY Qty: 90 RF: 3 atorvastatin 10 mg tablet 10 mg PO BEDTIME Qty: 90 RF: 3 meloxicam 7.5 mg tablet 7.5 mg PO DAILY Qty: 90 RF: 0 (DME) Disabled parking permit Qty: 1 RF: 0 bupropion HCl 150 mg tablet extended release 24 hr 150 mg PO QAM Qty: 90 RF: 1 (DME) Respironics DreamStation Auto CPAP Qty: 1 RF: 0 Referrals: Viviane Carpio DO [Primary Care Provider] -
--- NOTE | 2020-11-26 09:18 | DI.US.S_ITS ---
PROCEDURE: US ABDOMEN COMPLETE INDICATIONS: RECENT UROSEPSIS. CHILLS WITH OBSTRUCTIVE STONE. TECHNIQUE: Real-time scanning was performed of the abdominal and retroperitoneal organs, with image documentation. COMPARISON: [facility], CR, XR PELVIS WITH LATERAL HIP RIGHT, 10/12/2020, 13:29. [facility], CR, XR CHEST 1V, 11/26/2020, 10:18. FINDINGS: Liver: Liver is normal in size and homogeneous in echotexture. Gallbladder: The gallbladder has been previously resected Biliary ducts: Intrahepatic bile ducts are non-dilated. Extrahepatic bile duct caliber measures 4.9 mm. Normal is 6-7 mm or less in diameter, or 10 mm or less post-cholecystectomy. Pancreas: Poorly seen due to overlying bowel gas.. Spleen: Spleen is normal in size and homogeneous in echotexture. Kidneys: Kidneys are normal in size and echotexture. Right kidney measures 10.2 cm long; left kidney measures 11.2 cm long. No right-sided hydronephrosis or nephrolithiasis. Mild left-sided pelvicaliectasis. A left-sided nephrostomy tube is present, faintly visualized. No solid masses. Aorta: Visualized aorta is normal in caliber at less than 3 cm. Iliacs: Proximal common iliac arteries are normal in caliber at less than 2.5 cm. IVC: Intrahepatic inferior vena cava is patent. Miscellaneous: No free abdominal fluid. Prevoid urinary bladder appears normal, nondistended. IMPRESSION: Mild left-sided pelvicaliectasis. Left-sided flank percutaneous nephrostomy tube present, faintly visualized on sonographic imaging. Note: Reportedly patient has undergone nephrostomy tube placement for obstructive urinary tract stone and infection above obstruction. CT scanning would provide a more thorough assessment if clinically indicated. Dictated by: Rudy Rivera M.D. on 11/26/2020 at 10:39 Approved by: Rudy Rivera M.D. on 11/26/2020 at 10:58
--- NOTE | 2020-11-26 09:18 | DI.RAD.S_ITS ---
PROCEDURE: XR CHEST 1V INDICATIONS: chills, recent urosepsis with obstructive stone. TECHNIQUE: One view of the chest was acquired. COMPARISON: [facility], , CHEST 2 VIEW, 07/28/2017, 15:39. FINDINGS: Surgical changes and devices: None. Lungs and pleura: Lungs are clear. No pleural effusions or pneumothorax. Mediastinum: Mediastinal contours appear normal. Heart size is normal. Bones and chest wall: No suspicious bony lesions. Age-appropriate bony degenerative changes are seen. Overlying soft tissues appear unremarkable. IMPRESSION: Limited portable chest examination, without a significant cardiopulmonary abnormality identified. Dictated by: Steve Oconnell M.D. on 11/26/2020 at 9:28 Approved by: Steve Oconnell M.D. on 11/26/2020 at 9:28
[2020-11-26] MEDS: SODIUM CHLORIDE 0.9% 1,000 ML 1000 ML IV (09:29)
--- NOTE | 2020-11-26 09:36 | PC.NURSE ---
Right foot, blackened toes, tips of fingers on both hands are blackened. Recently,hospitalized for Urosepsis.
[2020-11-26 10:08] LABS: Appearance Urine UA SL CLOUDY; Bacteria Urine None Seen; Bilirubin Urine UA NEGATIVE (NEGATIVE); Color Urine UA YELLOW; Glucose Urine UA NEGATIVE (Negative); Ketones Urine UA NEGATIVE (NEGATIVE); Leukocyte Esterase Urine UA 3+ (NEGATIVE); Nitrite Urine UA NEGATIVE (Negative); Occult Blood Urine UA 2+ (Negative); Protein Urine UA 2+ (Negative); Urobilinogen Urine UA 0.2 E.U./dL (0.2)
[2020-11-26 10:10] LABS: pH Urine UA 6.5 (4.5-8.0)
[2020-11-26 10:14] LABS: Culture Indicated Urine Specimen Cultured; RBC Urine 10-30/HPF (0-5/HPF); Squamous Epithelial Cell Urine 1-5 /HPF (0-5/HPF); WBC Urine 30-100/HPF (0-5/HPF)
[2020-11-26] MEDS: PIPERACILLIN/TAZO 4.5 GM in SODIUM CHLORIDE 0.9% 100 ML 200 ML IV (10:49)
[2020-11-26 10:50] LABS: Add Manual Diff / Slide Review NO; Basophils Absolute Auto 100 /uL (0-100); Basophils Percent Auto 0.4 % (0-2); Eosinophils Absolute Auto 200 /uL (0-450); Eosinophils Percent Auto 0.9 % (2-4); Hematocrit 33.9 % (36-46); Hemoglobin 11.2 g/dL (12.0-16.0); Lymphocytes Absolute Auto 700 /uL (1100-4500); Lymphocytes Percent Auto 3.3 % (25-40); Mean Corpuscular Volume 87.9 fL (80-100); Monocytes Absolute Auto 800 /uL (0-900); Monocytes Percent Auto 3.4 % (3-14); Neutrophils Absolute Auto 20800 /uL (1500-7000); Platelet Count 276 X10^3/uL (150-400); Red Blood Cell Count 3.85 X10^6/uL (4.0-5.2); Red Cell Distribution Width 17.3 % (11.6-14.8); White Blood Cell Count 22.5 X10^3/uL (4.5-11.0)
[2020-11-26] MEDS: ONDANSETRON 4 MG/2 ML INJ IV (10:51)
[2020-11-26] MEDS: levoFLOXacin 750 MG/150 ML PIGGYBACK 100 MG IV (10:51)
[2020-11-26 10:55] LABS: INR 1.2 (0.9-1.3); Prothrombin Time 13.5 SECONDS (10.1-12.7)
[2020-11-26 10:58] LABS: PTT Partial Thromboplastin Tim 32 SECONDS (26.4-36.2)
[2020-11-26 10:59] LABS: Alanine Aminotransferase 16 IU/L (<35); Albumin 4.4 g/dL (3.5-5.0); Alkaline Phosphatase 125 U/L (38-126); Aspartate Aminotransferase 22 IU/L (14-36); BUN Creatinine Ratio 21.6 (6-22); Bilirubin Total 1.3 mg/dL (0.2-1.3); Blood Urea Nitrogen 29 mg/dL (7-17); Calcium 10.2 mg/dL (8.4-10.2); Carbon Dioxide 24 mmol/L (22-32); Chloride 101 mmol/L (98-107); Creatine Kinase 27 U/L (30-135); Estimated Glomerular Filt Rate 39.2 mL/min (>60); Globulin 4.3 g/dL (1.7-4.1); Glucose 167 mg/dL (80-110); HEMOLYSIS < 15 (0-50); Potassium 4.7 mmol/L (3.4-5.1); Sodium 136 mmol/L (137-145); Total Protein 8.7 g/dL (6.3-8.2)
[2020-11-26 11:00] LABS: Lactate (Lactic Acid) 1.4 mmol/L (0.7-2.1)
[2020-11-26 11:11] LABS: NT-proBNP (BNP-Adult 18+) 1350 pg/mL (<125); Troponin I 0.022 ng/mL (0.01-0.034)
--- NOTE | 2020-11-26 11:20 | DI.CT.S_ITS ---
PROCEDURE: CT ABDOMEN PELVIS W CON INDICATIONS: hx of ureteral stent, sepsis, chills, worsening labs. TECHNIQUE: After the administration of intravenous contrast, 5 mm thick sections acquired from the diaphragm to the symphysis. 5 mm coronal and sagittal reformats were acquired. For radiation dose reduction, the following was used: automated exposure control, adjustment of mA and/or kV according to patient size. COMPARISON: Outside Facility, RG, CT THORAX/ABD/PELVIS W/O CONTRAST, 10/27/2020, 5:11. FINDINGS: Image quality: Excellent. ABDOMEN: Lung bases: Lung bases are clear except for linear atelectasis or mild pneumonia at the posterior right lung base.. Heart size is normal. Solid organs: Liver is normal in size and enhancement. Gallbladder has been resected. Biliary system is non dilated. Pancreas enhances normally. Spleen is normal in size and enhancement. No adrenal nodules. Kidneys demonstrate normal size and enhancement, without hydronephrosis. There is a left posterior approach nephrostomy tube, on the left. More inferiorly at the abdomen/pelvis junction there is a 7 mm mid ureteral stone, having an internal radiodensity of up to 925 Hounsfield units. Peritoneum and bowel: Bowel loops demonstrate normal wall thickness and caliber. No free fluid or air. Nodes and vessels: No retroperitoneal or mesenteric adenopathy by size criteria. Aorta and inferior vena cava are normal in size. Miscellaneous: No ventral hernias. PELVIS: Genitourinary: Bladder wall thickness is normal. Miscellaneous: No inguinal hernias or adenopathy. Metal artifact from bilateral hip arthroplasty devices reduces quality of visualization over the lower pelvis. Bones: No suspicious bony lesions. No vertebral body compression fractures. IMPRESSION: Nephrostomy tube on the left, percutaneous from posterior approach, with no associated significant hydronephrosis in this patient with reported high-grade obstruction associated with the 7 mm mid left ureteral stone discussed above. Mild or early pneumonia right lung base posteriorly, versus atelectasis. Quality of visualization of the lower portion of the pelvis is relatively limited by metal artifact from bilateral hip arthroplasty devices. However, no inflammation in this area is suspected. Dictated by: Rudy Rivera M.D. on 11/26/2020 at 12:49 Approved by: Rudy Rivera M.D. on 11/26/2020 at 12:54
[2020-11-26] MEDS: VANCOMYCIN 1,500 MG/300 ML PIGGYBACK 200 MG IV (13:49)
--- NOTE | 2020-11-26 13:57 | PC.NURSE ---
Radha JARQUIN RN starting 2nd line
[2020-11-26] MEDS: LACTATED RINGERS 2,993.7 ML 997.9 ML IV (14:05)
[2020-11-26 14:26] LABS: COVID19 - ADMIT (NP swab/PCR) Negative (Negative)
[2020-11-26] MEDS: LACTATED RINGERS 1,000 ML 150 ML IV (17:40)
--- NOTE | 2020-11-26 19:22 | CM.MNRNOTE ---
Called Prov to give report, Nurse said that she would talk to the charge nurse and did not think that the Room was ready. Asked to give report and said she would not take it. No return call before leaving.
[2020-11-27 09:35] LABS: Acinetobacter baumannii Not Detected (Not Detect); Candida albicans Not Detected (Not Detect); Candida glabrata Not Detected (Not Detect); Candida krusei Not Detected (Not Detect); Candida parapsilosis Not Detected (Not Detect); Candida tropicalis Not Detected (Not Detect); E. coli Not Detected (Not Detect); Enterobacter cloacae complex Not Detected (Not Detect); Enterobacteriaceae species Not Detected (Not Detect); Enterococcus species Not Detected (Not Detect); Haemophilus influenzae Not Detected (Not Detect); KPC (carbapenem-resist gene) Not Detected (Not Detect); Listeria monocytogenes Not Detected (Not Detect); Neisseria meningitidis Not Detected (Not Detect); Proteus species Not Detected (Not Detect); Pseudomonas aeruginosa Detected (Not Detect); Serratia marcescens Not Detected (Not Detect); Staphylococcus species Not Detected (Not Detect); Streptococcus agalactiae (Gr B Not Detected (Not Detect); Streptococcus pneumonia Not Detected (Not Detect); Streptococcus pyogenes (Gr A) Not Detected (Not Detect); Streptococcus species Not Detected (Not Detect)
== END 2020-11-26 19:24 | disposition short-term general hospital (02) ==
PROVIDERS: Emergency Provider Emergency Medicine; PCP Family Medicine
DX: A41.9 Sepsis, unspecified organism (principal); J18.9 Pneumonia, unspecified organism; R00.0 Tachycardia, unspecified
CPT/HCPCS: 36415; 71045; 74177; 76700; 80053; 81001; 82550; 83605; 83880; 84145; 84484; 85025; 85610; 85730; 87040; 87077; 87086; 87150; 87186; 87205; 87635; 93005; 96361; 96365; 96366; 96367; 96368; 96375; 99285; C9803; J1956; J2405; J2543; Q9967

== ENCOUNTER 2020-12-03 00:10 | Emergency (ER) | payer MEDICARE, SELFPAY ==
[2020-12-03] VITALS (13 sets, daily range): BP systolic 90–149; BP diastolic 49–72; PULSE 53–60; RESP 17; TEMP 36.7; O2SAT 96–98; BMI 36.3
--- NOTE | 2020-12-03 00:30 | ED_ITS ---
HPI - General Adult General Chief complaint: Urogenital-Female Stated complaint: nephrostomy tube clogged Time Seen by Provider: 12/03/20 00:15 Source: patient and EMS Mode of arrival: EMS Limitations: no limitations History of Present Illness HPI narrative: 70-year-old female nonsmoker with history of hypertension, hyperlipidemia and kidney stones along with extensive recent medical history including multiple episodes of sepsis from a large obstructing kidney stone, subsequent intubation, use of pressors, myocardial infarction with stent placement presents with a chief complaint of concerned that her nephrostomy is not draining appropriately. She denies any pain nor fever chills. She is not dizzy nor weak or lightheaded. She denies any nausea, vomiting or diarrhea. One week ago she was admitted to an outside facility for urosepsis and was just discharged today to a local [facility] facility and presents here with the above-stated concerns. Onset (ago): minute(s) Associated symptoms: denies other symptoms Related Data Home Medications Medication Instructions Recorded Confirmed Respironics DreamStation Auto CPAP #1 ea 08/02/18 10/11/20 Previous Rx's Medication Instructions Recorded Disabled parking permit #1 ea 01/24/19 atorvastatin 10 mg tablet 10 mg PO BEDTIME #90 tab 08/10/20 losartan 50 mg tablet 50 mg PO DAILY #90 tab 08/10/20 meloxicam 7.5 mg tablet 7.5 mg PO DAILY #90 tab 08/10/20 bupropion HCl 150 mg 24 hr tablet, 150 mg PO QAM #90 tab 10/13/20 extended release Allergies Allergy/AdvReac Type Severity Reaction Status Date / Time codeine [CODEINE] Allergy Unknown Verified 10/11/20 16:40 latex [LATEX] Allergy Unknown Verified 10/11/20 16:40 Review of Systems Constitutional Constitutional: Denies chills, Denies fatigue, Denies fever(s), Denies frequent falls, Denies lethargy and Denies weakness Eyes Eyes: Denies change in vision, Denies eye discharge, Denies irritation and Denies loss of vision ENT Ears, Nose, Mouth, and Throat: Denies change in voice, Denies dizziness, Denies neck pain, Denies sore throat and Denies throat swelling Cardiovascular Cardiovascular: Denies chest pain, Denies irregular heart rhythm, Denies lightheadedness, Denies palpitations, Denies dyspnea, Denies dyspnea on exertion and Denies orthopnea Respiratory Respiratory: Denies cough, Denies dyspnea, Denies dyspnea on exertion and Denies wheezing Gastrointestinal Gastrointestinal: Denies abdominal pain, Denies change in bowel habits, Denies diarrhea, Denies nausea and Denies vomiting Musculoskeletal Musculoskeletal: Denies neck pain and Denies numbness Integumentary/Breasts Skin/Breast: Denies pruritus, Denies erythema, Denies rash and Denies wounds Neurologic Neurologic: Denies behavioral changes, Denies confusion, Denies dizziness, De nies frequent falls, Denies loss of vision, Denies numbness and Denies weakness Psychiatric Psychiatric: Denies anxiety, Denies behavioral changes, Denies confusion, Denies depression, Denies homicidal ideation and Denies suicidal ideation Endocrine Endocrine: Denies fatigue, Denies flushing and Denies palpitations Hematologic/Lymphatic Hematologic/Lymphatic: Denies easy bruising Allergic/Immunologic Allergic/Immunologic: Denies urticaria, Denies throat swelling and Denies wheezing Patient History Medical History Asthma (~2014) Chicken pox Depression (~1997) Diabetes mellitus (~2015) Hemorrhoid (~1979) Hypothyroidism (~2015) Measles Mumps Obesity (BMI 30-39.9) Sleep apnea (~1999) Surgical History Anesthesia History of sinus surgery (~2004) Status post appendectomy (~1959) Status post cholecystectomy (~1988) Status post hysterectomy (~1998) Family History Father Heart disease Mother Heart disease Social History marital status: Smoking Status: Never smoker alcohol intake: never substance use type: does not use Smoking Status: Never smoker alcohol intake frequency: holidays/special occasions only Substance Use Type: does not use Exam Narrative Exam Narrative: GENERAL: [70] year old patient appears stated age. Well- nourished, well-developed patient, in mild distress. Anxious. No respiratory distress HEAD: Atraumatic. Normocephalic. EYES: Pupils equal round and reactive. Extraocular motions intact. No scleral icterus. No injection or drainage. ENT: Mucous membranes moist. Nose without bleeding, purulent drainage. Throat wi thout erythema, tonsillar hypertrophy or exudate. Airway patent. NECK: Trachea midline. Non tender CARDIOVASCULAR: Regular rate and rhythm without murmurs, gallops, or rubs. RESPIRATORY: Clear to auscultation. Breath sounds equal bilaterally. No wheezes, rales, or rhonchi. GASTROINTESTINAL: Abdomen soft, non-tender, nondistended. EXTREMITIES: Multiple necrotic digits, most notably toes 1-3 on R foot, also some on left foot. BACK: Nontender without deformity or crepitance. No flank tenderness. NEURO: AOx3. SKIN: No rash or erythema of visible areas Initial Vital Signs Initial Vital Signs: Vital Signs Temperature 98.1 F 12/03/20 00:28 Pulse Rate 58 L 12/03/20 00:28 Respiratory Rate 17 12/03/20 00:28 Blood Pressure 149/72 H 12/03/20 00:28 Pulse Oximetry 98 12/03/20 00:28 Course Course Course Narrative: nursing has flushed nephrostomy and patient reports pain after 10mL. We received 10mL return and minimal ongoing flow. Orders Ordered: Discontinued Medications Sodium Chloride (Normal Saline 0.9%) 1,000 mls @ 125 mls/hr IV CONT JENN Last Infusion: 12/03/20 05:34 Dose: 0 mls/hr Documented by: Admin: 12/03/20 00:47 Dose: 125 mls/hr Documented by: TARYN Vital Signs Vital signs: Vital Signs - 8 hr 12/03/20 00:28 12/03/20 00:29 12/03/20 00:30 Temperature 98.1 F Pulse Rate 58 L 59 L 60 Respiratory Rate 17 Blood Pressure 149/72 H 131/62 Pulse Oximetry 98 97 97 12/03/20 01:00 12/03/20 01:30 12/03/20 01:45 Temperature Pulse Rate 58 L 58 L 57 L Respiratory Rate Blood Pressure 136/61 121/60 111/54 L Pulse Oximetry 96 97 98 12/03/20 02:00 12/03/20 02:30 12/03/20 03:00 Temperature Pulse Rate 54 L 53 L 55 L Respiratory Rate Blood Pressure 99/54 L 103/55 L 110/55 L Pulse Oximetry 98 98 98 12/03/20 03:14 12/03/20 03:30 12/03/20 04:00 Temperature Pulse Rate 57 L Respiratory Rate Blood Pressure 106/57 L 90/49 L Pulse Oximetry 97 12/03/20 04:10 Temperature Pulse Rate Respiratory Rate Blood Pressure 119/57 L Pulse Oximetry Medical Decision Making Lab Data Result diagrams: 12/03/20 00:31 12/03/20 00:31 Labs: Lab Results 12/03/20 12/03/20 12/03/20 Range/Units 00:31 00:31 00:31 WBC 13.1 H (4.5-11.0) X10^3/uL RBC 3.45 L (4.0-5.2) X10^6/uL Hgb 10.1 L (12.0-16.0) g/dL Hct 30.2 L (36-46) % MCV 87.5 (80-100) fL MCH 29.3 (26-34) PG MCHC 33.4 (30-36) % RDW 16.3 H (11.6-14.8) % Plt Count 294 (150-400) X10^3/uL Neut % (Auto) 70.9 (50-75) % Lymph % (Auto) 18.9 L (25-40) % [place] % (Auto) 5.3 (3-14) % Eos % (Auto) 4.2 H (2-4) % Baso % (Auto) 0.7 (0-2) % Neut # (Auto) 9300 H (6228-9284) /uL Lymph # (Auto) 2500 (2759-2786) /uL [place] # (Auto) 700 (0-900) /uL Eos # (Auto) 600 H (0-450) /uL Baso # (Auto) 100 (0-100) /uL Sodium 137 (137-145) mmol/L Potassium 4.2 (3.4-5.1) mmol/L Chloride 105 (98-107) mmol/L Carbon Dioxide 23 (22-32) mmol/L BUN 22 H (7-17) mg/dL Creatinine 0.91 (0.52-1.04) mg/dL Estimated GFR > 60.0 (>60) mL/min BUN/Creatinine Ratio 24.2 H (6-22) Glucose 114 H (80-110) mg/dL Lactate 0.9 (0.7-2.1) mmol/L Calcium 9.9 (8.4-10.2) mg/dL Total Bilirubin 0.5 (0.2-1.3) mg/dL AST 19 (14-36) IU/L ALT 14 (<35) IU/L Alkaline Phosphatase 100 (38-126) U/L Total Protein 7.9 (6.3-8.2) g/dL Albumin 4.0 (3.5-5.0) g/dL Globulin 3.9 (1.7-4.1) g/dL Albumin/Globulin Ratio 1.0 (1.0-2.8) Urine Color Urine Appearance Urine pH (4.5-8.0) Ur Specific [place] (1.000-1.035) Urine Protein (Negative) Urine Glucose (UA) (Negative) g/dL Urine Ketones (NEGATIVE) Urine Occult Blood (Negative) Urine Nitrate (Negative) Urine Bilirubin (NEGATIVE) Urine Urobilinogen (0.2) E.U./dL Ur Leukocyte Esterase (NEGATIVE) Urine RBC (0-5/HPF) Urine WBC (0-5/HPF) Urine Bacteria (None) Urine Yeast (None) Ur Culture Indicated? Micro UA Comment 12/03/20 Range/Units 01:05 WBC (4.5-11.0) X10^3/uL RBC (4.0-5.2) X10^6/uL Hgb (12.0-16.0) g/dL Hct (36-46) % MCV (80-100) fL MCH (26-34) PG MCHC (30-36) % RDW (11.6-14.8) % Plt Count (150-400) X10^3/uL Neut % (Auto) (50-75) % Lymph % (Auto) (25-40) % [place] % (Auto) (3-14) % Eos % (Auto) (2-4) % Baso % (Auto) (0-2) % Neut # (Auto) (2806-3273) /uL Lymph # (Auto) (5439-2155) /uL [place] # (Auto) (0-900) /uL Eos # (Auto) (0-450) /uL Baso # (Auto) (0-100) /uL Sodium (137-145) mmol/L Potassium (3.4-5.1) mmol/L Chloride (98-107) mmol/L Carbon Dioxide (22-32) mmol/L BUN (7-17) mg/dL Creatinine (0.52-1.04) mg/dL Estimated GFR (>60) mL/min BUN/Creatinine Ratio (6-22) Glucose (80-110) mg/dL Lactate (0.7-2.1) mmol/L Calcium (8.4-10.2) mg/dL Total Bilirubin (0.2-1.3) mg/dL AST (14-36) IU/L ALT (<35) IU/L Alkaline Phosphatase (38-126) U/L Total Protein (6.3-8.2) g/dL Albumin (3.5-5.0) g/dL Globulin (1.7-4.1) g/dL Albumin/Globulin Ratio (1.0-2.8) Urine Color [place] Urine Appearance Clear Urine pH 6.0 (4.5-8.0) Ur Specific [place] 1.010 (1.000-1.035) Urine Protein 3+ H (Negative) Urine Glucose (UA) Negative (Negative) g/dL Urine Ketones Negative (NEGATIVE) Urine Occult Blood 3+ H (Negative) Urine Nitrate Negative (Negative) Urine Bilirubin Negative (NEGATIVE) Urine Urobilinogen 0.2 (0.2) E.U./dL Ur Leukocyte Esterase 2+ H (NEGATIVE) Urine RBC 30-100/hpf H (0-5/HPF) Urine WBC 5-10/hpf H (0-5/HPF) Urine Bacteria None seen (None) Urine Yeast 5-10/hpf H (None) Ur Culture Indicated? Specimen cultured Micro UA Comment * Imaging Data CT scan - abdomen/pelvis: Radiologist's Impression: Left-sided tube was well positioned, coiled in the renal pelvis without complication, nonobstructing stone in the left kidney MDM Narrative Medical decision making narrative: Patient doing quite well, has no pain no fever, no nausea or vomiting.Nephrostomy draining quite well. I've discussed with inspector outside steam distribution urology at [facility] and he is in agreement that she is appropriate for discharge. Return precautions given. Questions answered to her apparent satisfaction. Discharge Plan Departure Patient Disposition: Home Clinical Impression: Complication of nephrostomy Instructions: DI for Nephrostomy Activity Restrictions/Additional Instructions: *You have been diagnosed with [nephrostomy complication, resolved during visit. Labs and imaging are very reassuring] *What to do: *Please continue to take your regular medications as directed. [ ] New medication prescriptions sent to your pharmacy: [ ] [ ] New medication written as a paper prescription [x ] No new medications given *Please follow up with your primary care provider in 2-3 days, call for an appointment. Let them know you were seen in the Emergency Department and that we ask that you be seen in follow up. We will electronically transmit a record of today's note if your PCP is in our system *If you do not have a primary care provider please contact the [facility] Resource line at [phone]. They will ask some questions about your medical history and help get you set up with a doctor in the community. *Return to Emergency Department if you should have any new, worsening or concerning symptoms, such as [fever greater than 101 F, shaking chills, worsening pain, persistent vomiting or other bothersome symptoms] Prescriptions: No Action losartan 50 mg tablet 50 mg PO DAILY Qty: 90 RF: 3 atorvastatin 10 mg tablet 10 mg PO BEDTIME Qty: 90 RF: 3 meloxicam 7.5 mg tablet 7.5 mg PO DAILY Qty: 90 RF: 0 (DME) Disabled parking permit Qty: 1 RF: 0 bupropion HCl 150 mg tablet extended release 24 hr 150 mg PO QAM Qty: 90 RF: 1 (DME) Respironics DreamStation Auto CPAP Qty: 1 RF: 0 Referrals: Viviane Carpio DO [Primary Care Provider] -
[2020-12-03] MEDS: SODIUM CHLORIDE 0.9% 1,000 ML 125 ML IV (00:47)
[2020-12-03 00:53] LABS: Add Manual Diff / Slide Review NO; Basophils Absolute Auto 100 /uL (0-100); Basophils Percent Auto 0.7 % (0-2); Eosinophils Absolute Auto 600 /uL (0-450); Eosinophils Percent Auto 4.2 % (2-4); Hematocrit 30.2 % (36-46); Hemoglobin 10.1 g/dL (12.0-16.0); Lymphocytes Absolute Auto 2500 /uL (1100-4500); Lymphocytes Percent Auto 18.9 % (25-40); Mean Corpuscular HGB Conc 33.4 % (30-36); Mean Corpuscular Hemoglobin 29.3 PG (26-34); Mean Corpuscular Volume 87.5 fL (80-100); Monocytes Absolute Auto 700 /uL (0-900); Monocytes Percent Auto 5.3 % (3-14); Neutrophils Absolute Auto 9300 /uL (1500-7000); Neutrophils Percent Auto 70.9 % (50-75); Platelet Count 294 X10^3/uL (150-400); Red Blood Cell Count 3.45 X10^6/uL (4.0-5.2); Red Cell Distribution Width 16.3 % (11.6-14.8); White Blood Cell Count 13.1 X10^3/uL (4.5-11.0)
[2020-12-03 00:57] LABS: Lactate (Lactic Acid) 0.9 mmol/L (0.7-2.1)
[2020-12-03 00:59] LABS: Alanine Aminotransferase 14 IU/L (<35); Alkaline Phosphatase 100 U/L (38-126); Aspartate Aminotransferase 19 IU/L (14-36); BUN Creatinine Ratio 24.2 (6-22); Bilirubin Total 0.5 mg/dL (0.2-1.3); Blood Urea Nitrogen 22 mg/dL (7-17); Calcium 9.9 mg/dL (8.4-10.2); Carbon Dioxide 23 mmol/L (22-32); Chloride 105 mmol/L (98-107); Estimated Glomerular Filt Rate > 60.0 mL/min (>60); Globulin 3.9 g/dL (1.7-4.1); Glucose 114 mg/dL (80-110); HEMOLYSIS < 15 (0-50); Potassium 4.2 mmol/L (3.4-5.1); Sodium 137 mmol/L (137-145); Total Protein 7.9 g/dL (6.3-8.2)
[2020-12-03 01:13] LABS: Bacteria Urine None Seen
--- NOTE | 2020-12-03 01:20 | DI.CT.S_ITS ---
PROCEDURE: CT ABDOMEN PELVIS W CON INDICATIONS: nephrostomy not draining, recent complications TECHNIQUE: After the administration of intravenous contrast, 5 mm thick sections acquired from the diaphragm to the symphysis. 5 mm coronal and sagittal reformats were acquired. For radiation dose reduction, the following was used: automated exposure control, adjustment of mA and/or kV according to patient size. COMPARISON: [facility], CT, CT ABDOMEN PELVIS W CON, 11/26/2020, 12:18. FINDINGS: Image quality: Excellent. ABDOMEN: Lung bases: Streaky bibasilar atelectasis. Heart size is normal. Moderate scattered atherosclerotic calcifications of the coronary arteries are noted. Solid organs: Liver is normal in size and enhancement. Gallbladder is surgically absent. Biliary system is non dilated. Pancreas enhances normally. Spleen is normal in size and enhancement. No adrenal nodules. No hydronephrosis. Very small inferior pole right renal hypodensity likely representing a cyst. It is too small to accurately characterize. Right ureter is unremarkable in course and calibre although the distal most segments are obscured by beam hardening artifact from adjacent bilateral total hip arthroplasty hardware. Stable appearance of bilateral left renal cyst. Stable positioning of left posterior percutaneous nephrostomy tube placement with the distal tip coiled in the left renal pelvis. No evidence for hydronephrosis on the left. Stable appearance of punctate inferior renal pole calculus on the left. Redemonstration of known 7 mm ureteral stone noted in the proximal 3rd of the left ureter. There is no significant hydroureter proximally. Peritoneum and bowel: Bowel loops demonstrate normal wall thickness and caliber. No free fluid or air. Scattered colonic diverticulosis without acute diverticulitis. Moderate fecal burden seen throughout the colon. Nodes and vessels: No retroperitoneal or mesenteric adenopathy by size criteria. Aorta and inferior vena cava are normal in size. Scattered atherosclerotic calcifications of the abdominal aorta and iliac vessels without aneurysmal dilatation. Miscellaneous: No ventral hernias. Numerous scattered foci of subcutaneous soft tissue stranding, a few with tiny locules of air, likely representing subcutaneous injection sites. PELVIS: Genitourinary: Urinary bladder wall thickness appears normal for degree of distension. Status post hysterectomy. Miscellaneous: No inguinal hernias. No pelvic adenopathy. Bones: No suspicious bony lesions. No acute vertebral body compression fractures. Status post bilateral total hip arthroplasties. Surgical hardware creates significant beam hardening artifact which limits evaluation of the lower pelvis. IMPRESSION: 1. Stable positioning of left-sided nephrostomy tube which appears to be well positioned in the left renal pelvis. No evidence for hydronephrosis or abnormal fluid collections. 2. Stable appearance of 7 mm ureteral stone noted in the proximal 3rd of the left ureter. 3. Stable appearance of nonobstructing left renal stone. 4. Colonic diverticulosis without acute diverticulitis. 5. Other chronic findings as above. No significant discrepancy with the nightclub manager radiology preliminary report. Dictated by: Seng Domingo M.D. on 12/03/2020 at 9:25 Approved by: Seng Domingo M.D. on 12/03/2020 at 9:34
[2020-12-03 01:34] LABS: Appearance Urine UA Clear; Bilirubin Urine UA Negative (NEGATIVE); Color Urine UA PINK; Glucose Urine UA NEGATIVE (Negative); Ketones Urine UA NEGATIVE (NEGATIVE); Nitrite Urine UA NEGATIVE (Negative); Occult Blood Urine UA 3+ (Negative); Protein Urine UA 3+ (Negative)
[2020-12-03 01:35] LABS: Leukocyte Esterase Urine UA 2+ (NEGATIVE); RBC Urine 30-100/HPF (0-5/HPF); Urobilinogen Urine UA 0.2 E.U./dL (0.2); WBC Urine 5-10/HPF (0-5/HPF)
[2020-12-03 01:36] LABS: Culture Indicated Urine Specimen Cultured
--- NOTE | 2020-12-03 04:13 | PC.NURSE ---
Emptied pt's nephrostomy bag. 70cc total urine output since flushed.
== END 2020-12-03 05:30 | disposition home or self-care (01) ==
PROVIDERS: Emergency Provider Emergency Medicine; PCP Family Medicine
DX: N99.528 Other complication of incontinent external stoma of urinary tract (principal); Z87.442 Personal history of urinary calculi
CPT/HCPCS: 36415; 74177; 80053; 81001; 83605; 85025; 87040; 87077; 87086; 96360; 96361; 99284; Q9967

== ENCOUNTER → 2021-01-27 14:47 | Outpatient (CLI) | payer MEDICARE, MEDICAID, SELFPAY ==
--- NOTE | 2021-01-27 14:49 | DI.ECHO.S_ITS ---
[place] [facility]---------+ [facility] +---------+ : : [address] : [address] : : : : [id number] : : : : Phone: [phone]+ Echocardiogram Report + + :Name: JENNIFER HIGGINS Study Date: 01/27/2021 Height: 64 in : :[facility] ReadingLocation: Weight: 211 lb : : Gender: Female BSA: 2.0 m2 : :: 1950 Age: 70 yrs BP: 119/78 mmHg: :Reason For Study: NSTEMI : :Ordering Physician: : :WIN DUNAWAY Performed By: Branden Harry : :Referring: WIN DUNAWAY : + + Interpretation Summary The ejection fraction is estimated to be 60-65%. There is mild to moderate aortic stenosis. The calculated aortic valve area is 1.6 cm2. There is mild tricuspid regurgitation. The right ventricular systolic pressure is estimated to be at least 29 mmHg based on an estimated right atrial pressure of 3 mm Hg. Procedure: A two-dimensional transthoracic echocardiogram with color flow and Doppler was performed. Comparison is made with the echocardiogram of 12/27/2018. The study quality was technically difficult. Left Ventricle: The left ventricle is normal in size and wall thickness. Left ventricular systolic function is normal. The ejection fraction is estimated to be 60-65%. There are no focal wall motion abnormalities. Diastolic parameters suggest a pseudonormalization pattern, consistent with probable elevated filling pressures. Right Ventricle: The right ventricle is normal in size and function. Atria: Both atria are moderately dilated. The right atrium is normal in size. There is no Doppler evidence for an interatrial shunt. Mitral Valve: There is moderate mitral annular calcification. There is no mitral regurgitation noted. Aortic Valve: The aortic valve is not well visualized. There is mild to moderate aortic stenosis. The aortic valve mean gradient is 28 mmHg. The peak aortic velocity is 3.7 m/sec. The calculated aortic valve area is 1.6 cm2. There is mild aortic regurgitation. Tricuspid Valve: The tricuspid valve is normal in structure and function. There is mild tricuspid regurgitation. The right ventricular systolic pressure is estimated to be at least 29 mmHg based on an estimated right atrial pressure of 3 mm Hg. Pulmonic Valve: The pulmonic valve is not well visualized. Great Vessels: The aortic root is normal size. The ascending aorta could not be visualized. The IVC is of normal diameter and collapses greater than 50% with a sniff. This suggests a low right atrial pressure of 3 mm Hg. Pericardium/ Pleura There is no pericardial effusion. There is no pleural effusion. MMode/2D Measurements & Calculations LVIDd: 3.6 cm LVOT diam: 2.0 cm LVIDs: 2.3 cm Ao root diam: 3.0 cm FS: 36.1 % IVSd: 0.90 cm LVPWd: 0.90 cm LV nichole. diameter/BSA (cm/m^2): 1.8 LV sys. diameter/BSA (cm/m^2): 1.1 LA dimension: 4.6 cm RA long axis: 4.7 cm LA A2 area: 25.5 cm2 LA A4 area: 25.3 cm2 LA length (vol): 6.1 cm LA vol: 89.5 ml LA vol index: 44.7 ml/m2 TAPSE_phl: 3.2 cm Doppler Measurements & Calculations Ao V2 max: 367.0 cm/sec LVOT Max Rene: 172.0 cm/sec Ao V2 mean: 249.0 cm/sec LV V1 max P.8 mmHg Ao max P.9 mmHg LV V1 VTI: 41.1 cm Ao mean P.0 mmHg CYNDI(I,D): 1.6 cm2 Ao V2 VTI: 82.3 cm CYNDI(V,D): 1.5 cm2 sev ratio: 0.50 CYNDI indexed to BSA (cm^2/m^2): 0.78 MV E max rene: 126.0 cm/sec TR max rene: 254.0 cm/sec MV A max rene: 126.0 cm/sec TR max P.8 mmHg MV E/A: 1.0 Med Peak E' Rene: 6.2 cm/sec E/E' med: 20.4 Lat Peak E' Rene: 10.4 cm/sec E/E' lat: 12.1 E/e' average: 16.2 MV dec time: 0.32 sec SV(LVOT): 129.1 ml AV VR_phl: 0.49 CYNDI(VTI)/BSA_phl: 0.81 MV P1/2t-pr_phl: 94.0 msec Reading Physician:10:09 AM
== END ==
PROVIDERS: PCP Family Medicine; Referring Provider Internal Medicine; Visit Provider Internal Medicine
DX: I08.2 Rheumatic disorders of both aortic and tricuspid valves (principal); I25.2 Old myocardial infarction
CPT/HCPCS: 93306

== ENCOUNTER → 2021-02-03 22:26 | Outpatient (ROUT) | payer MEDICARE, SELFPAY ==
[2021-02-03 22:45] LABS: Appearance Urine UA SL CLOUDY; Bilirubin Urine UA NEGATIVE (NEGATIVE); Glucose Urine UA NEGATIVE (Negative); Ketones Urine UA NEGATIVE (NEGATIVE); Leukocyte Esterase Urine UA 3+ (NEGATIVE); Nitrite Urine UA NEGATIVE (Negative); Occult Blood Urine UA 3+ (Negative); Protein Urine UA 2+ (Negative); Urobilinogen Urine UA 0.2 E.U./dL (0.2)
[2021-02-03 22:48] LABS: pH Urine UA 6.5 (4.5-8.0)
[2021-02-03 22:49] LABS: Color Urine UA PINK
[2021-02-03 22:52] LABS: Bacteria Urine Many (>30); Hyaline Casts Urine 0-1/LPF; RBC Urine 30-100/HPF (0-5/HPF); Squamous Epithelial Cell Urine 0-1 /HPF (0-5/HPF); WBC Urine 30-100/HPF (0-5/HPF)
== END ==
PROVIDERS: PCP Family Medicine; Visit Provider Nurse Practitioner
DX: Z01.818 Encounter for other preprocedural examination (principal); Z01.812 Encounter for preprocedural laboratory examination
CPT/HCPCS: 81001; 87077; 87086; 87186

== ENCOUNTER → 2021-03-02 10:22 | Outpatient (CLI) | payer MEDICARE, MEDICAID, SELFPAY ==
--- NOTE | 2021-03-02 | DI.RAD.S_ITS ---
PROCEDURE: XR SHOULDER LT MIN 2V INDICATIONS: PAIN IN LEFT SHOULDER TECHNIQUE: 3 views of the shoulder were acquired. COMPARISON: None. FINDINGS: Bones: No fractures or dislocations. Moderate acromioclavicular joint and glenohumeral joint osteoarthritic changes are seen. No suspicious bony lesions. Visualized ribs appear intact. Soft tissues: No suspicious soft tissue calcifications. IMPRESSION: Moderate left shoulder joint osteoarthritis. No fracture or dislocation. Dictated by: Armen Monson M.D. on 03/02/2021 at 11:18 Approved by: Armen Monson M.D. on 03/02/2021 at 11:25
== END ==
PROVIDERS: PCP Family Medicine; Referring Provider Emergency Medicine; Visit Provider Emergency Medicine
DX: M25.512 Pain in left shoulder (principal); M19.012 Primary osteoarthritis, left shoulder
CPT/HCPCS: 73030

== ENCOUNTER → 2021-03-02 18:05 | Outpatient (ROUT) | payer MEDICARE, MEDICAID, SELFPAY ==
[2021-03-02 18:08] LABS: Bacteria Urine None Seen
[2021-03-02 18:13] LABS: Appearance Urine UA CLEAR; Bilirubin Urine UA NEGATIVE (NEGATIVE); Color Urine UA YELLOW; Glucose Urine UA NEGATIVE (Negative); Ketones Urine UA NEGATIVE (NEGATIVE); Leukocyte Esterase Urine UA 1+ (NEGATIVE); Nitrite Urine UA NEGATIVE (Negative); Occult Blood Urine UA 3+ (Negative); Protein Urine UA TRACE (Negative); Specific Gravity Urine UA <=1.005 (1.000-1.035); Urobilinogen Urine UA 0.2 E.U./dL (0.2)
[2021-03-02 18:20] LABS: Culture Indicated Urine Specimen Cultured; RBC Urine 5-10/HPF (0-5/HPF); WBC Urine 5-10/HPF (0-5/HPF)
== END ==
PROVIDERS: PCP Family Medicine; Visit Provider Nurse Practitioner
DX: R82.90 Unspecified abnormal findings in urine (principal)
CPT/HCPCS: 81001; 87086

== ENCOUNTER → 2021-03-30 11:49 | Outpatient (CLI) | payer MEDICARE, MEDICAID, SELFPAY ==
--- NOTE | 2021-03-30 12:03 | DI.RAD.S_ITS ---
PROCEDURE: XR HIP W PEL IF DONE RT 2V INDICATIONS: PATIENT HISTORY OF ORIF TECHNIQUE: AP pelvis and lateral view of the right hip acquired. COMPARISON: [facility], CR, XR PELVIS WITH LATERAL HIP RIGHT, 10/12/2020, 13:29. FINDINGS: Bones: Patient is status post bilateral hip arthroplasty, with hardware components in expected positions. The hip joint appears congruent. The visualized bony structures appear intact. Degenerative disc and facet disease involves the inferior lumbar spine. Soft tissues: Overlying postoperative changes are noted. No suspicious soft tissue densities. 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 IMPRESSION: Stable appearance bilateral hip arthroplasties. Dictated by: Rosas XAVIER Interpreted: Anna Grimes MD on 03/30/2021 at 13:11 Transcribed by: MUSHTAQ on 03/30/2021 at 13:12 Approved by: Anna Grimes M.D. on 03/30/2021 at 15:22
== END ==
PROVIDERS: PCP Family Medicine; Referring Provider Nurse Practitioner; Visit Provider Nurse Practitioner
DX: R52 Pain, unspecified (principal); Z96.643 Presence of artificial hip joint, bilateral
CPT/HCPCS: 73502

== ENCOUNTER → 2021-04-25 08:30 | Outpatient (CLI) | payer MEDICARE, MEDICAID, SELFPAY ==
[2021-04-25 13:26] LABS: COVID-19 CEPHEID PCR (VTM/NP) Negative (Negative)
== END ==
PROVIDERS: PCP Family Medicine; Visit Provider Nurse Practitioner Family
DX: Z20.822 Contact with and (suspected) exposure to COVID-19 (principal)
CPT/HCPCS: U0003

== ENCOUNTER → 2021-05-27 15:03 | Outpatient (CLI) | payer MEDICARE, MEDICAID, SELFPAY ==
--- NOTE | 2021-05-27 | DI.RAD.S_ITS ---
PROCEDURE: XR HIP W PEL IF DONE RT 2V INDICATIONS: Status Post Hip Replacement TECHNIQUE: AP pelvis with lateral view of the right hip. COMPARISON: [facility], CR, XR HIP W PEL IF DONE RT 2V, 03/30/2021, 12:12. FINDINGS: Bones: Bilateral total hip arthroplasties are seen with unchanged alignment. Stable ossification is seen lateral to the right hip. No acute osseous fracture is seen. No definite signs of hardware loosening. Degenerative changes are seen in the sacroiliac joints and spine. Soft tissues: The visualized bowel gas pattern is normal. No suspicious soft tissue calcifications. IMPRESSION: Stable appearance of bilateral hip arthroplasties. Dictated by: Vinicius Mckinney M.D. on 05/27/2021 at 15:40 Approved by: Vinicius Mckinney M.D. on 05/27/2021 at 15:43
== END ==
PROVIDERS: PCP Family Medicine; Referring Provider Orthopaedic Surgery; Visit Provider Orthopaedic Surgery
DX: Z96.643 Presence of artificial hip joint, bilateral; M25.551 Pain in right hip
CPT/HCPCS: 73502

== ENCOUNTER → 2021-08-10 09:32 | Outpatient (CLI) | payer MEDICARE, MEDICAID, SELFPAY ==
--- NOTE | 2021-08-10 10:14 | DI.RAD.S_ITS ---
PROCEDURE: XR KUB INDICATIONS: Right lower back pain, UTI, hx of septic nephrolithiasis TECHNIQUE: One view of the abdomen acquired. COMPARISON: [facility], CR, XR HIP W PEL IF DONE RT 2V, 05/27/2021, 14:59. FINDINGS: Surgical changes and devices: Bilateral hip arthroplasties are present. Cholecystectomy clips are noted. Bowel: Bowel gas pattern is normal. Pido-aa-celdnsgs stool is present. Soft tissues: No suspicious abdominal calcifications. Calcifications are noted within the pelvis suggestive of phleboliths. No distinct calcifications are noted overlying the renal shadows. However, these areas are partially obscured particularly on the right by overlying stool. Visualized solid organ contours appear normal in size. Bones: No suspicious bony lesions. IMPRESSION: Rkwz-[id number]-ctijzqlw stool suggestive of constipation. No obstruction. Dictated by: Anna Grimes M.D. on 08/10/2021 at 10:52 Approved by: Anna Grimes M.D. on 08/10/2021 at 10:54
== END ==
PROVIDERS: PCP Family Medicine; Referring Provider Physician Assistant; Visit Provider Physician Assistant
DX: N34.3 Urethral syndrome, unspecified (principal); M54.50 Low back pain, unspecified
CPT/HCPCS: 74018; 87077; 87086; 87186

== ENCOUNTER → 2021-08-20 13:18 | Outpatient (CLI) | payer MEDICARE, MEDICAID, SELFPAY ==
--- NOTE | 2021-08-20 13:19 | DI.RAD.S_ITS ---
PROCEDURE: XR RIBS RT MIN 3V W CXR 1V INDICATIONS: R lateral rib pain TECHNIQUE: 2 views of the right ribs were acquired, along with a single view chest. COMPARISON: None. FINDINGS: Surgical changes and devices: None. Bones and chest wall: No definite acute rib fractures. No suspicious bony lesions. Overlying soft tissues appear unremarkable. Lungs and pleura: No pleural effusions or pneumothorax. Lungs appear clear. Mediastinum: Mediastinal contours appear normal. Heart size is normal. IMPRESSION: No acute cardiopulmonary abnormalities. No definite displaced acute rib fractures. Study was slightly degraded by respiratory motion artifact. Dictated by: Seng Domingo M.D. on 08/20/2021 at 13:52 Approved by: Seng Domingo M.D. on 08/20/2021 at 13:54
== END ==
PROVIDERS: PCP Family Medicine; Referring Provider Physician Assistant; Visit Provider Physician Assistant
DX: R07.81 Pleurodynia (principal)
CPT/HCPCS: 71101

== ENCOUNTER → 2021-08-26 10:16 | Outpatient (CLI) | payer MEDICARE, MEDICAID, SELFPAY ==
[2021-08-26 11:03] LABS: Add Manual Diff / Slide Review NO; Basophils Absolute Auto 100 /uL (0-100); Basophils Percent Auto 0.7 % (0-2); Eosinophils Absolute Auto 600 /uL (0-450); Eosinophils Percent Auto 7.9 % (2-4); Hematocrit 27.3 % (36-46); Hemoglobin 8.2 g/dL (12.0-16.0); Lymphocytes Absolute Auto 1200 /uL (1100-4500); Lymphocytes Percent Auto 16.2 % (25-40); Mean Corpuscular Hemoglobin 20.4 PG (26-34); Mean Corpuscular Volume 68.1 fL (80-100); Monocytes Absolute Auto 400 /uL (0-900); Monocytes Percent Auto 5.4 % (3-14); Neutrophils Absolute Auto 5000 /uL (1500-7000); Neutrophils Percent Auto 69.8 % (50-75); Platelet Count 328 X10^3/uL (150-400); Red Blood Cell Count 4.01 X10^6/uL (4.0-5.2); Red Cell Distribution Width 18.2 % (11.6-14.8); White Blood Cell Count 7.2 X10^3/uL (4.5-11.0)
[2021-08-26 11:16] LABS: Hemoglobin A1C% w Est Avg Glu 5.8 % (4.0-6.0)
[2021-08-26 11:51] LABS: Microcytosis 2+
[2021-08-26 12:05] LABS: Alanine Aminotransferase 12 IU/L (<35); Albumin 4.3 g/dL (3.5-5.0); Albumin Globulin Ratio 1.3 (1.0-2.8); Alkaline Phosphatase 104 U/L (38-126); Aspartate Aminotransferase 20 IU/L (14-36); BUN Creatinine Ratio 17.6 (6-22); Bilirubin Total 0.5 mg/dL (0.2-1.3); Blood Urea Nitrogen 18 mg/dL (7-17); Calcium 9.3 mg/dL (8.4-10.2); Carbon Dioxide 25 mmol/L (22-32); Chloride 108 mmol/L (98-107); Estimated Glomerular Filt Rate 53.6 mL/min (>60); Globulin 3.3 g/dL (1.7-4.1); Glucose 149 mg/dL (80-110); HEMOLYSIS < 15 (0-50); Potassium 4.1 mmol/L (3.4-5.1); Sodium 139 mmol/L (137-145); Total Protein 7.6 g/dL (6.3-8.2)
[2021-08-26 12:44] LABS: TSH w/ Reflex to FT4 1.81 uIU/mL (0.47-4.68)
[2021-08-30 09:38] LABS: HEMOLYSIS < 15 (0-50); Iron 22 ug/dL (37-170)
[2021-08-30 09:48] LABS: Percent Iron Saturation 5 % (15-50); Total Iron Binding Capacity 402 ug/dL (265-497); Transferrin 325 mg/dL (206-381)
[2021-08-30 10:14] LABS: Ferritin 6 ng/mL (11-264)
== END ==
PROVIDERS: PCP Family Medicine; Referring Provider Family Medicine; Visit Provider Family Medicine
DX: E03.9 Hypothyroidism, unspecified (principal); E11.9 Type 2 diabetes mellitus without complications; G47.33 Obstructive sleep apnea (adult) (pediatric)
CPT/HCPCS: 36415; 80053; 82728; 83036; 83540; 83550; 84443; 85025

== ENCOUNTER → 2021-08-30 09:36 | Outpatient (CLI) | payer MEDICARE, MEDICAID, SELFPAY ==
[2021-08-30 11:07] LABS: Cholesterol 168 mg/dL (140-199); HDL Cholesterol 77 mg/dL (40-60); LDL Cholesterol Calculated 67 mg/dL (<100); Triglycerides 119 mg/dL (35-150)
== END ==
PROVIDERS: PCP Family Medicine; Visit Provider Family Medicine
DX: I21.4 Non-ST elevation (NSTEMI) myocardial infarction (principal)
CPT/HCPCS: 80061

== ENCOUNTER → 2021-09-12 13:45 | Outpatient (CLI) | payer MEDICARE, MEDICAID, SELFPAY ==
[2021-09-12 14:29] LABS: Bacteria Urine Few (2-10); Culture Indicated Urine Cult Not Indicated; RBC Urine 1-5/HPF (0-5/HPF); Squamous Epithelial Cell Urine 5-10 /HPF (0-5/HPF); WBC Urine 5-10/HPF (0-5/HPF)
[2021-09-13 13:38] LABS: Fecal Immunochemical Test Negative (Negative)
== END ==
PROVIDERS: PCP Family Medicine; Referring Provider Family Medicine; Visit Provider Family Medicine
DX: D64.9 Anemia, unspecified (principal); N30.01 Acute cystitis with hematuria
CPT/HCPCS: 81015; 82274; 87086

== ENCOUNTER → 2022-04-06 15:01 | Outpatient (CLI) | payer MEDICARE, MEDICAID, SELFPAY ==
[2022-04-06 15:54] LABS: Add Manual Diff / Slide Review NO; Basophils Absolute Auto 100 /uL (0-100); Basophils Percent Auto 0.7 % (0-2); Eosinophils Absolute Auto 900 /uL (0-450); Eosinophils Percent Auto 9.5 % (2-4); Hematocrit 38.3 % (36-46); Hemoglobin 12.7 g/dL (12.0-16.0); Lymphocytes Absolute Auto 1700 /uL (1100-4500); Mean Corpuscular HGB Conc 33.1 % (30-36); Mean Corpuscular Hemoglobin 27.8 PG (26-34); Monocytes Absolute Auto 500 /uL (0-900); Monocytes Percent Auto 5.8 % (3-14); Neutrophils Absolute Auto 6000 /uL (1500-7000); Platelet Count 253 X10^3/uL (150-400); Red Blood Cell Count 4.56 X10^6/uL (4.0-5.2); Red Cell Distribution Width 15.7 % (11.6-14.8); White Blood Cell Count 9.2 X10^3/uL (4.5-11.0)
[2022-04-06 16:06] LABS: HEMOLYSIS < 15 (0-50); Iron 69 ug/dL (37-170)
[2022-04-06 16:09] LABS: Alanine Aminotransferase 15 IU/L (<35); Albumin 4.6 g/dL (3.5-5.0); Albumin Globulin Ratio 1.2 (1.0-2.8); Alkaline Phosphatase 135 U/L (38-126); Aspartate Aminotransferase 22 IU/L (14-36); BUN Creatinine Ratio 13.6 (6-22); Bilirubin Total 0.6 mg/dL (0.2-1.3); Blood Urea Nitrogen 14 mg/dL (7-17); Calcium 9.5 mg/dL (8.4-10.2); Carbon Dioxide 22 mmol/L (22-32); Chloride 106 mmol/L (98-107); Estimated Glomerular Filt Rate 58 mL/min (>60); Globulin 3.9 g/dL (1.7-4.1); Glucose 108 mg/dL (80-110); HEMOLYSIS < 15 (0-50); Potassium 4.6 mmol/L (3.4-5.1); Sodium 141 mmol/L (137-145); Total Protein 8.5 g/dL (6.3-8.2)
[2022-04-06 16:16] LABS: Percent Iron Saturation 20 % (15-50); Total Iron Binding Capacity 345 ug/dL (265-497); Transferrin 264 mg/dL (206-381)
[2022-04-06 16:41] LABS: Ferritin 16 ng/mL (11-264)
[2022-04-06 16:43] LABS: Appearance Urine UA CLEAR; Bilirubin Urine UA NEGATIVE (NEGATIVE); Color Urine UA YELLOW; Glucose Urine UA NEGATIVE (Negative); Ketones Urine UA NEGATIVE (NEGATIVE); Leukocyte Esterase Urine UA 3+ (NEGATIVE); Nitrite Urine UA POSITIVE (Negative); Occult Blood Urine UA 1+ (Negative); Protein Urine UA NEGATIVE (Negative); Specific Gravity Urine UA <=1.005 (1.000-1.035); Urobilinogen Urine UA 0.2 E.U./dL (0.2)
[2022-04-06 17:04] LABS: Bacteria Urine Many (>30); Culture Indicated Urine Specimen Cultured; RBC Urine 1-5/HPF (0-5/HPF); Squamous Epithelial Cell Urine 1-5 /HPF (0-5/HPF); WBC Urine 30-100/HPF (0-5/HPF)
== END ==
PROVIDERS: PCP Family Medicine; Referring Provider Family Medicine; Visit Provider Family Medicine
DX: D50.9 Iron deficiency anemia, unspecified (principal); R30.0 Dysuria; E11.9 Type 2 diabetes mellitus without complications
CPT/HCPCS: 36415; 80053; 81003; 81015; 82728; 83540; 83550; 85025; 87077; 87086; 87186